=== PATIENT | male | born 1975 | race Caucasian/White ===

== ENCOUNTER 2018-03-06 11:13 | Emergency (ER) | payer OTHER ==
[2018-03-06 11:18] VITALS: BP 122/79; PULSE 88; TEMP 98.6; BMI 27.4
--- NOTE | 2018-03-06 11:43 | PDOC ---
History of Present Illness - General Chief Complaint: Injury Stated Complaint: FALL/ LT SHOULDER PAIN Time Seen by Provider: 03/06/18 11:22 - History of Present Illness Initial Comments: 42-year-old male presents for evaluation of left shoulder pain after fall on his shoulder yesterday. He points to the posterior lateral aspect of the left shoulder as the area of his discomfort. His pain is exacerbated with motion relieved with rest and free of radiation. No prior problems with the left shoulder. 03/06/18 11:40 Past History - Past Medical History Allergies/Adverse Reactions: Allergies Allergy/AdvReac Type Severity Reaction Status Date / Time No Known Allergies Allergy Verified 03/06/18 11:14 Home Medications: Ambulatory Orders Ibuprofen [Motrin -] 600 mg PO TID #30 tablet 03/06/18 Anemia: No Asthma: No Cancer: No Cardiac Disorders: No CVA: No COPD: No CHF: No DVT: No Dementia: No Diabetes: No GI Disorders: No Disorders: No HTN: No Hypercholesterolemia: No Liver Disease: No Seizures: No Thyroid Disease: No - Surgical History Abdominal Surgery: No Appendectomy: No Cardiac Surgery: No Cholecystectomy: No Lung Surgery: No Neurologic Surgery: No Orthopedic Surgery: No - Suicide/Smoking/Psychosocial Hx Smoking History: Never smoked Have you smoked in the past 12 months: No Information on smoking cessation initiated: No Hx Alcohol Use: No Drug/Substance Use Hx: No Substance Use Type: None Hx Substance Use Treatment: No Review of Systems - Review of Systems Musculoskeletal: Yes: Joint Pain All Other Systems: Reviewed and Negative *Physical Exam - Vital Signs Last Vital Signs Temp Pulse Resp BP Pulse Ox 98.6 F 88 18 122/79 100 03/06/18 11:16 03/06/18 11:16 03/06/18 11:16 03/06/18 11:16 03/06/18 11:16 - Physical Exam Comments: A by the way temperature if occasionally number on the way there is a superficial abrasion on the posterior aspect of the left shoulder. Remainder of the shoulder is normal skin color and temperature. There is no tenderness. There is pain with active motion. Passive forward flexion to 90 full internal and external rotation passively. He cannot tolerate impingement maneuvers were rotator cuff strength testing. He has no gross sensorimotor deficits. He is neurovascularly intact. 03/06/18 11:41 ED Treatment Course - RADIOLOGY Radiology Studies Ordered: Category Date Time Status SHOULDER-LEFT [RAD] Stat Radiology 03/06/18 11:40 Ordered Medical Decision Making - Medical Decision Making This most likely a left shoulder contusion versus a traumatic cuff rupture. Get an x-ray to rule out a fracture and have her follow-up with orthopedics. 03/06/18 11:43 03/06/18 11:54 X-rays of the left shoulder show mild to moderate degenerative changes at the before meals joint D Humira head is centered in the glenoid no acute fracture *DC/Admit/Observation/Transfer Diagnosis at time of Disposition: Contusion of left shoulder - Discharge Dispostion Disposition: HOME Condition at time of disposition: Stable Decision to Admit order: No - Referrals Referrals: Jeancarlos Valdivia MD [Staff Physician] - - Patient Instructions Printed Discharge Instructions: Contusion Additional Instructions: I've given you Motrin for your pain it's important to take this medicine with food. If it bothers her stomach discontinue the medication. It's also point to follow-up with orthopedic surgery for further evaluation and treatment options or your left shoulder pain. Return to the emergency room if symptoms worsen or go unresolved prior to follow-up. - Post Discharge Activity
== END 2018-03-06 12:00 | disposition home or self-care (01) ==
LOC: JERFT 11:13
DX: S40.012A Contusion of left shoulder, initial encounter (principal); W01.0XXA Fall on same level from slipping, tripping and stumbling without subsequent striking against object, initial encounter; Y93.89 Activity, other specified; Y92.89 Other specified places as the place of occurrence of the external cause; Y99.8 Other external cause status
CPT/HCPCS: 73030-TC-LT-FY; 99281-25

== ENCOUNTER 2018-09-09 00:02 | Emergency (ER) | payer OTHER ==
[2018-09-09 00:34] VITALS: TEMP 98.3; BMI 28.3
--- NOTE | 2018-09-09 00:36 | PDOC ---
Attending Attestation - [facility] HPI: 09/09/18 01:09 The patient is a 43 year old male with no significant PMH who presents to the emergency department with right ankle pain since 5AM this morning. Patient reports that he rolled his right ankle and fell onto his right elbow. Patient denies any right elbow pain. Patient has noticed significant swelling throughout the day prompting him to come to the ER for evaluation. Patient states he can ambulate but with pain. The patient denies chest pain, shortness of breath, headache and dizziness. Denies fever, chills, nausea, vomit, diarrhea and constipation. Denies dysuria, frequency, urgency and hematuria. Allergies: NKA Past surgical history: Social history: No reported
--- NOTE | 2018-09-09 01:39 | PDOC ---
History of Present Illness <Yovana Tran - Last Filed: 09/09/18 02:35> - General History Source: Patient Exam Limitations: No Limitations - History of Present Illness Initial Comments: 09/09/18 01:31 43 yo M with no pmhx presents to the emergency department with an ankle injury that occurred at approximately 5am when returning from work to home walking outside in the rain. Per the patient, he slipped and rolled his right ankle outwards and subsequently fell, denying head trauma. The patient states he had pain in the medial and lateral aspect of the ankle, but was able to ambulate with some difficulty. The patient states it continued to swell throughout the day with progressive pain. Denies the following: fever, chills, nausea, vomiting , headache, visual changes, chest pain, SOB, abdominal pain, dysuria, hematuria , diarrhea, hematochezia, knee pain/swelling, and hip pain bilaterally. Pmhx: None Shx: None Meds: None Allergies: NKDA Social: Denies tobacco, alcohol, and substance abuse. <Jose Anand - Last Filed: 09/09/18 03:58> - General Chief Complaint: Pain Stated Complaint: SWOLLEN R ANKLE Time Seen by Provider: 09/09/18 00:35 Past History <Yovana Tran - Last Filed: 09/09/18 02:35> - Past Medical History Anemia: No Asthma: No Cancer: No Cardiac Disorders: No CVA: No COPD: No CHF: No DVT: No Dementia: No Diabetes: No GI Disorders: No Disorders: No HTN: No Hypercholesterolemia: No Liver Disease: No Seizures: No Thyroid Disease: No - Surgical History Abdominal Surgery: No Appendectomy: No Cardiac Surgery: No Cholecystectomy: No Lung Surgery: No Neurologic Surgery: No Orthopedic Surgery: No - Immunization History Immunization Up to Date: Yes - Suicide/Smoking/Psychosocial Hx Smoking History: Never smoked Have you smoked in the past 12 months: No Information on smoking cessation initiated: No Hx Alcohol Use: No Drug/Substance Use Hx: No Substance Use Type: None Hx Substance Use Treatment: No <Jose Anand - Last Filed: 09/09/18 03:58> - Past Medical History Allergies/Adverse Reactions: Allergies Allergy/AdvReac Type Severity Reaction Status Date / Time No Known Allergies Allergy Verified 09/09/18 00:34 Home Medications: Ambulatory Orders Ibuprofen [Motrin -] 600 mg PO TID #30 tablet 03/06/18 Review of Systems - Review of Systems Able to Perform ROS?: Yes Is the patient limited Yemeni proficient: No Constitutional: No: Chills, Diaphoresis, Fever, Weakness HEENTM: No: Recent change in vision, Nose Pain, Throat Pain, Throat Swelling, Mouth Pain, Mouth Swelling Respiratory: No: Shortness of Breath, SOB with Exertion, Hemoptysis Cardiac (ROS): No: Chest Pain, Lightheadedness, Palpitations, Syncope, Chest Tightness ABD/GI: No: Constipated, Diarrhea, Nausea, Rectal Bleeding, Vomiting, Abdominal cramping, Tarry Stools : No: Burning, Dysuria, Flank Pain, Hematuria Musculoskeletal: Yes: Joint Pain (right ankle), Joint Swelling (right ankle). No: Back Pain Integumentary: Yes: Bruising (right ankle). No: Pallor, Rash Neurological: No: Headache, Numbness, Weakness, Ataxia Psychiatric: No: Stressors Endocrine: No: Unexplained Weight Gain Hematologic/Lymphatic: No: Anemia <Jose Anand - Last Filed: 09/09/18 03:58> *Physical Exam - Vital Signs Last Vital Signs Temp Pulse Resp BP Pulse Ox 98.3 F 78 18 112/73 98 09/09/18 00:33 09/09/18 00:33 09/09/18 00:33 09/09/18 00:33 09/09/18 00:33 <Yovana Tran - Last Filed: 09/09/18 02:35> - Vital Signs Last Vital Signs Temp Pulse Resp BP Pulse Ox 98.3 F 78 18 112/73 98 09/09/18 00:33 09/09/18 00:33 09/09/18 00:33 09/09/18 00:33 09/09/18 00:33 - Physical Exam General Appearance: Yes: Nourished, Appropriately Dressed HEENT: positive: EOMI, OPAL, Normal Voice, Symmetrical, Hearing Grossly Normal. negative: Scleral Icterus (R), Scleral Icterus (L), Muffled/Hoarse voice, Lesions, Wahl, Excessive drooling Neck: positive: Trachea midline. negative: Tender, Lymphadenopathy (R), Lymphadenopathy (L), Tender lateral, Tender midline Respiratory/Chest: positive: Lungs Clear, Normal Breath Sounds. negative: Chest Tender, Respiratory Distress, Accessory Muscle Use, Paradoxal Breathing, Crackles, Rales, Rhonchi, Stridor, Wheezing, Hyperresonant Cardiovascular: positive: Regular Rhythm, Regular Rate, S1, S2. negative: Systolic Murmur Gastrointestinal/Abdominal: positive: Normal Bowel Sounds, Flat, Soft. negative : Tender, Protuberent, Distended, Rebound Lymphatic: negative: Adenopathy Musculoskeletal: positive: Normal Inspection. negative: CVA Tenderness Extremity: positive: Normal Capillary Refill, Normal Range of Motion, Tender ( right ankle at the posterior and inferior portions of the medial malleolus. inferior portion of the lateral malleolus. ecchymosis on these aspects. swelling present on the ankle. no tenderness to the 5th metatarsal. ) Integumentary: positive: Normal Color, Dry, Warm Neurologic: positive: agency legal counsel II-XII NML intact, Fully Oriented, Alert, Normal Mood/ Affect, Normal Response, Motor Strength 5/5 <Jose Anand - Last Filed: 09/09/18 03:58> Moderate Sedation - Procedure Monitoring Vital Signs: Procedure Monitoring Vital Signs Temperature 98.3 F 09/09/18 00:33 Pulse Rate 78 09/09/18 00:33 Respiratory Rate 18 09/09/18 00:33 Blood Pressure 112/73 09/09/18 00:33 O2 Sat by Pulse Oximetry (%) 98 09/09/18 00:33 <Yovana Tran - Last Filed: 09/09/18 02:35> - Procedure Monitoring Vital Signs: Procedure Monitoring Vital Signs Temperature 98.3 F 09/09/18 00:33 Pulse Rate 78 09/09/18 00:33 Respiratory Rate 18 09/09/18 00:33 Blood Pressure 112/73 09/09/18 00:33 O2 Sat by Pulse Oximetry (%) 98 09/09/18 00:33 <Jose Anand - Last Filed: 09/09/18 03:58> Procedures - Splinting Splint Location: Right: Ankle Pre-Proc Neuro Vasc Exam: normal Hand-Made Type: orthoglass Splint Type: Yes: Sugar Tong, Posterior Post-Proc Neuro Vasc Exam: normal Jah Bandage: 3" Sling: No Complications: No Post splint xray: No Good repositioning: Yes <Jose Anand - Last Filed: 09/09/18 03:58> ED Treatment Course - RADIOLOGY Radiology Studies Ordered: Category Date Time Status ANKLE & FOOT-RIGHT* [RAD] Stat Radiology 09/09/18 00:57 Ordered <Jose Anand - Last Filed: 09/09/18 03:58> Medical Decision Making - Medical Decision Making 09/09/18 02:35 Patient Name: QUENTIN MAO THIS IS A PRELIMINARY REPORT FROM IMAGING CONSULTING ANALYST DATE OF SERVICE: 2018-09-09 01:10:15 IMAGES: 5 EXAM: X-RAY RIGHT ANKLE AND RIGHT FOOT Acute minimally displaced oblique fracture distal metadiaphysis right fibula. Moderate soft tissue swelling about the ankle. Medial tibiotalar joint space appears widened on frontal view, question post-traumatic subluxation versus artifact due to slightly oblique positioning. No additional acute fracture or dislocation right foot. <Yovana Tran - Last Filed: 09/09/18 02:35> - Medical Decision Making 43 yo M with no pmhx presents to the emergency department with an ankle injury that occurred at approximately 5am when returning from work to home walking outside in the rain Initial vitals: Initial Vital Signs Temp Pulse Resp BP Pulse Ox 98.3 F 78 18 112/73 98 09/09/18 00:33 09/09/18 00:33 09/09/18 00:33 09/09/18 00:33 09/09/18 00:33 Work up: xray of the right foot and ankle to rule out dislocations and fractures. 09/09/18 02:13 patient has a non displaced transverse fracture of the distal fibula with possible shifting of the tibia widening the space between the tibia and navicular. Patient has retained ROM on the right ankle and able to ambulate. Will put in a posterior and sugar tong splint. xray has been sent to imaging personnel associate for further reading. 09/09/18 02:38 xray report came back with results above. patient was able to ambulate around the bed. understands the need to follow up with orthopedics within 72 hours for follow up care and management. <Jose Anand - Last Filed: 09/09/18 03:58> *DC/Admit/Observation/Transfer <Yovana Tran - Last Filed: 09/09/18 02:35> - Discharge Dispostion Decision to Admit order: No <Jose Anand - Last Filed: 09/09/18 03:58> Diagnosis at time of Disposition: Fracture of tibia, distal Qualifiers: Encounter type: initial encounter Fracture type: closed Fracture morphology: unspecified fracture morphology Laterality: right Qualified Code(s): S82.301A - Unspecified fracture of lower end of right tibia, initial encounter for closed fracture - Discharge Dispostion Disposition: HOME - Referrals Referrals: Jeancarlos Valdivia MD [Staff Physician] - - Patient Instructions Additional Instructions: You were seen in the emergency department for the evaluation of your swollen ankle. xray showed that you have a fracture on the distal end of your fibula. You have been given a copy of your xray report. Please keep the splint dry. Keep it on until you are seen by Dr. Valdivia who you have been referred to. Please follow up with him within 72 hours after discharge. Please follow up with your primary medical doctor within 5-7 days after discharge. Please return to the emergency department if you have worsening symptoms or new concerning symptoms such as loss of sensation, increased swelling, and your feet turning blue. Please take off your splint if these symptoms occur. Thank you. - Post Discharge Activity Forms/Work/School Notes: Back to Work
--- NOTE | 2018-09-09 02:33 | PDOC ---
*Physical Exam - Vital Signs Last Vital Signs Temp Pulse Resp BP Pulse Ox 98.3 F 78 18 112/73 98 09/09/18 00:33 09/09/18 00:33 09/09/18 00:33 09/09/18 00:33 09/09/18 00:33 Medical Decision Making - Medical Decision Making Pt was signed out to me by resident Dr. Anand, who explained the presentation, ED course, any pending results, and needed interventions. Pending results include x-ray read of the lower leg and foot to r/o any fracture or dislocation in the midfoot. Pt is currently stable and is lying comfortably. Dr. Anand placed pt in a posterior lower leg splint before leaving the department. 09/09/18 02:31
[2018-09-09 02:47] VITALS: BP 124/76; PULSE 84
== END 2018-09-09 02:47 | disposition home or self-care (01) ==
LOC: JER 00:02
PROC: 2W3QX1Z Immobilization of Right Lower Leg using Splint (ICD-10-PCS; principal; 2018-09-09)
DX: S82.301A Unspecified fracture of lower end of right tibia, initial encounter for closed fracture (principal); W01.0XXA Fall on same level from slipping, tripping and stumbling without subsequent striking against object, initial encounter; Y93.89 Activity, other specified; Y92.410 Unspecified street and highway as the place of occurrence of the external cause
CPT/HCPCS: 29515; 73610-TC-RT-FY; 73630-TC-RT-FY; 99282-25

== ENCOUNTER 2018-09-10 16:48 | Emergency (ER) | payer OTHER ==
[2018-09-10 17:23] VITALS: BP 127/79; PULSE 74; TEMP 98.8; BMI 28.3
--- NOTE | 2018-09-10 17:25 | PDOC ---
Rapid Medical Evaluation Chief Complaint: Revisit,Wound Recheck Time Seen by Provider: 09/10/18 17:18 Medical Evaluation: Allergies Allergy/AdvReac Type Severity Reaction Status Date / Time No Known Allergies Allergy Verified 09/10/18 17:19 09/10/18 17:21 I have performed a brief in-person evaluation of this patient. The patient presents with a chief complaint of:worsen swelling and pain to right ankle Pertinent physical exam findings: swelling to left ankle , states is bruised and weeping. I have ordered the following: nothing The patient will proceed to the ED for further evaluation. Discharge Disposition - Referrals Referrals: Yariel Day [Primary Care Provider] - - Patient Instructions - Post Discharge Activity
--- NOTE | 2018-09-10 18:16 | PDOC ---
History of Present Illness - General Chief Complaint: Revisit,Wound Recheck Stated Complaint: REVISIT ANKLE INJURY Time Seen by Provider: 09/10/18 17:18 - History of Present Illness Initial Comments: 09/10/18 18:15 43-year-old male without comorbidities presents for reevaluation of right ankle pain. He was diagnosed with an ankle fracture splinted and told to follow-up with orthopedics. He did however the orthopedic physician told him he did not take his insurance. He presents with increasing swelling now a blister on the medial aspect of his right ankle. And increasing pain. Past History - Past Medical History Allergies/Adverse Reactions: Allergies Allergy/AdvReac Type Severity Reaction Status Date / Time No Known Allergies Allergy Verified 09/10/18 17:19 Home Medications: Ambulatory Orders Ibuprofen [Motrin -] 600 mg PO TID #30 tablet 03/06/18 Anemia: No Asthma: No Cancer: No Cardiac Disorders: No CVA: No COPD: No CHF: No DVT: No Dementia: No Diabetes: No GI Disorders: No Disorders: No HTN: No Hypercholesterolemia: No Liver Disease: No Seizures: No Thyroid Disease: No - Surgical History Abdominal Surgery: No Appendectomy: No Cardiac Surgery: No Cholecystectomy: No Lung Surgery: No Neurologic Surgery: No Orthopedic Surgery: No - Immunization History Immunization Up to Date: Yes - Suicide/Smoking/Psychosocial Hx Smoking History: Never smoked Have you smoked in the past 12 months: No Hx Alcohol Use: No Drug/Substance Use Hx: No Substance Use Type: None Hx Substance Use Treatment: No Review of Systems - Review of Systems Musculoskeletal: Yes: Joint Pain *Physical Exam - Vital Signs Last Vital Signs Temp Pulse Resp BP Pulse Ox 98.8 F 74 18 127/79 98 09/10/18 17:20 09/10/18 17:20 09/10/18 17:20 09/10/18 17:20 09/10/18 17:20 - Physical Exam Comments: 09/10/18 18:15 There is a moderate amount of swelling about the right ankle both medially and laterally with associated fresh purple ecchymosis there is a small weeping blister on the medial aspect of the right ankle. Range of motion is limited no gross sensorimotor deficits stability not evaluated is neurovascularly intact. Moderate Sedation - Procedure Monitoring Vital Signs: Procedure Monitoring Vital Signs Temperature 98.8 F 12/03/18 17:20 Pulse Rate 74 09/10/18 17:20 Respiratory Rate 18 09/10/18 17:20 Blood Pressure 127/79 09/10/18 17:20 O2 Sat by Pulse Oximetry (%) 98 09/10/18 17:20 ED Treatment Course - RADIOLOGY Radiology Studies Ordered: Category Date Time Status LOWER EXTREMITY CT W/O CONTR [CT] Stat CT Scan 09/10/18 18:03 Ordered Medical Decision Making - Medical Decision Making 09/10/18 19:31 New posterior and sugar tong splint was applied this was tolerated well the blister on the medial aspect of the ankle was covered with a dry sterile dressing neurovascular intact post application 09/10/18 19:32 CAT scan reviewed and showed a distal fibula fracture with minimal displacement widening of the mortise *DC/Admit/Observation/Transfer Diagnosis at time of Disposition: Fracture of distal fibula - Discharge Dispostion Disposition: HOME Condition at time of disposition: Stable Decision to Admit order: No - Referrals Referrals: Yariel Day [Primary Care Provider] - Jeancarlos Valdivia MD [Staff Physician] - - Patient Instructions Additional Instructions: Please keep the splint clean and dry remain nonweightbearing with use of crutches Tylenol and Motrin as directed for pain and follow-up with orthopedics as scheduled and serum should symptoms worsen or go unresolved. Elevate your ankle above the level of your heart continuously while your home - Post Discharge Activity
[2018-09-10] MEDS ORDERED: ACETAMINOPHEN 500 MG TABLET (FP) PO ONE (18:56)
[2018-09-10] MEDS ORDERED: ACETAMINOPHEN 500 MG TABLET (FP) ONE (18:58)
== END 2018-09-10 19:36 | disposition home or self-care (01) ==
LOC: JERFT 16:48
PROC: 2W3QX1Z Immobilization of Right Lower Leg using Splint (ICD-10-PCS; principal; 2018-09-10)
DX: S82.831G Other fracture of upper and lower end of right fibula, subsequent encounter for closed fracture with delayed healing (principal); X58.XXXD Exposure to other specified factors, subsequent encounter
CPT/HCPCS: 29515; 73700-TC-RT; 99282-25

== ENCOUNTER 2019-12-29 05:07 | Inpatient (IN) | payer OTHER ==
--- NOTE | 2019-12-29 05:46 | PDOC ---
History of Present Illness - General Chief Complaint: Cold Symptoms Stated Complaint: COLD SYMPTOMS Time Seen by Provider: 12/29/19 05:45 - History of Present Illness Initial Comments: 12/29/19 06:30 44 y/o M no significant medical hx, presents to the ED with 1 week of chills, and shortness of breath. Pt has equally had fevers on and off while at home. He reports seeing his PCP 3 days ago who tested for influenza which was negative. He reports over the lasat 2 days, he has had increased difficulty breathing at rest, and fevers not adequately controlled with ibuprofen at home. He endorses watery diarrhea, myalgias, sick contacts ( with flu like symptoms currently doing well). He denies nausea, vomiting, urinary symptoms. Past History - Past Medical History Allergies/Adverse Reactions: Allergies Allergy/AdvReac Type Severity Reaction Status Date / Time No Known Allergies Allergy Verified 12/29/19 05:29 Home Medications: Ambulatory Orders Ibuprofen [Motrin -] 600 mg PO TID #30 tablet 03/06/18 Anemia: No Asthma: No Cancer: No Cardiac Disorders: No CVA: No COPD: No CHF: No DVT: No Dementia: No Diabetes: No GI Disorders: No Disorders: No HTN: No Hypercholesterolemia: No Liver Disease: No Seizures: No Thyroid Disease: No - Surgical History Abdominal Surgery: No Appendectomy: No Cardiac Surgery: No Cholecystectomy: No Lung Surgery: No Neurologic Surgery: No Orthopedic Surgery: No - Immunization History Immunization Up to Date: Yes - Psycho Social/Smoking Cessation Hx Smoking History: Unknown if ever smoked Have you smoked in the past 12 months: No Information on smoking cessation initiated: No Hx Alcohol Use: No Drug/Substance Use Hx: No Substance Use Type: None Hx Substance Use Treatment: No Review of Systems - Review of Systems Comments:: 12/29/19 06:35 GENERAL/CONSTITUTIONAL: fevers chills HEAD, EYES, EARS, NOSE AND THROAT: No change in vision. No ear pain or discharge. No sore throat. CARDIOVASCULAR: shortness of breath. RESPIRATORY: shortness of breath GASTROINTESTINAL: No nausea, vomiting, or constipation. +diarrhea GENITOURINARY: No dysuria, frequency, or change in urination. MUSCULOSKELETAL: No joint or muscle swelling or pain. No neck or back pain. SKIN: No rash NEUROLOGIC: No headache, vertigo, loss of consciousness, or change in strength/sensation. ENDOCRINE: No increased thirst. No abnormal weight change HEMATOLOGIC/LYMPHATIC: No anemia, easy bleeding, or history of blood clots. ALLERGIC/IMMUNOLOGIC: No hives or skin allergy *Physical Exam - Vital Signs Last Vital Signs Temp Pulse Resp BP Pulse Ox 101.2 F H 95 H 20 138/69 90 L 12/29/19 05:29 12/29/19 05:29 12/29/19 05:29 12/29/19 05:29 12/29/19 05:29 - Physical Exam 12/29/19 06:28 GENERAL: Awake, alert, and fully oriented HEAD: No signs of trauma, normocephalic, atraumatic EYES: PERRLA, EOMI, sclera anicteric, conjunctiva clear ENT: Auricles normal inspection, hearing grossly normal, nares patent, NECK: Normal ROM, supple, no lymphadenopathy, JVD, or masses LUNGS: increased respiratory effort, pt only speaking in short sentences. on nasal cannula. decreased breath sounds in left lower lung powers. HEART: Regular rate and rhythm, normal S1 and S2, no murmurs, rubs or gallops, ABDOMEN: Soft, nontender, normoactive bowel sounds. No guarding, no rebound. No masses EXTREMITIES : Normal inspection, Normal range of motion, no edema. No clubbing or cyanosis NEUROLOGICAL: Cranial nerves II through XII grossly intact. Normal speech, normal gait, no focal sensorimotor deficits SKIN: Warm, Dry, normal turgor, no rashes or lesions noted ED Treatment Course - LABORATORY CBC & Chemistry Diagram: 01/01/20 06:40 01/01/20 06:00 Medical Decision Making - Medical Decision Making 12/29/19 06:33 44 y/o M no significant medical hx, presents to the ED with 1 week of chills, and shortness of breath. increased respiratory effort, tachypneic with fever ddx: pneumonia (viral vs bacterial ), coronavirus, other respiratory virus 12/29/19 06:37 workup cbc, cmp, ekg,troponin resp viral panel, covid, chest x-ray meds: Iv fluids, tylenol signed out to Dr. Mishra 12/29/19 07:28 Discharge - Discharge Information Problems reviewed: Yes Clinical Impression/Diagnosis: Viral illness Respiratory failure Qualifiers: Chronicity: acute Respiratory failure complication: hypoxia Qualified Code(s): J96.01 - Acute respiratory failure with hypoxia Condition: Stable - Follow up/Referral - Patient Discharge Instructions - Post Discharge Activity
[2019-12-29] MEDS ORDERED: ACETAMINOPHEN 1000 MG/100 ML VIAL (NON FORMULARY) IVPB ONE (06:04)
[2019-12-29] MEDS ORDERED: SODIUM CHLORIDE 0.9% 500 ML INFUS.BAG IV ONE (06:04)
[2019-12-29] MEDS ORDERED: ACETAMINOPHEN INJECTION 100 ML IVPB ONE (06:24)
--- NOTE | 2019-12-29 06:52 | PDOC ---
Attending Attestation - Resident Resident Name: YanniMonicaMichaelNickevon - ED Attending Attestation I have performed the following: I have examined & evaluated the patient, The case was reviewed & discussed with the resident, I agree w/resident's findings & plan, Exceptions are as noted - HPI HPI: 12/29/19 06:44 44yoM no PMHx, no cig presnets w/ 10 days of progressive fevers, cough, sob/garcia. Much worse over past 1-2 days. Now visibly dyspneic at rest in stretcher, hypoxic on RA to 80's, speaking in 2- 3 words. - Physicial Exam PE: 12/29/19 06:52 dyspneic, mild respiratory distress at rest. RRR good air movement, diffuse fine crackles to apices b/l, no wheezing/r/r. soft NTND no edema A&O x 3 - Medical Decision Making 12/29/19 06:52 44yoM w/ moderate to severe presumed COVID-19 disease. - labs - testing - cxr - cardaic monitor - maintain O2 -- pt on 5L on ED presnetation - admit, low threshold for ICU consultation. Discharge - Discharge Information Problems reviewed: Yes Clinical Impression/Diagnosis: Viral illness - Follow up/Referral Referrals: Lachelle Torres MD [Primary Care Provider] - - Patient Discharge Instructions - Post Discharge Activity
[2019-12-29 07:25] LABS: ALBUMIN 2.7 g/dl (3.4-5.0); ALK PHOS 79 U/L (45-117); ANION GAP 10 MMOL/L (8-16); BILIRUBIN,TOTAL 0.6 mg/dL (0.2-1); BLOOD UREA NITROGEN 10.2 mg/dL (7-18); CALCIUM 7.5 mg/dL (8.5-10.1); CHLORIDE 103 mmol/L (98-107); CO2 24 mmol/L (21-32); CREATININE 0.7 mg/dL (0.55-1.3); GLUCOSE,RANDOM 146 mg/dL (74-106); POTASSIUM 3.7 mmol/L (3.5-5.1); SGOT/AST 182 U/L (15-37); SGPT/ALT 278 U/L (13-61); SODIUM 136 mmol/L (136-145); TOT PROT 6.3 g/dl (6.4-8.2)
--- NOTE | 2019-12-29 07:34 | PDOC ---
*Physical Exam - Vital Signs Last Vital Signs Temp Pulse Resp BP Pulse Ox 101.2 F H 95 H 20 138/69 90 L 12/29/19 05:29 12/29/19 05:29 12/29/19 05:29 12/29/19 05:29 12/29/19 05:29 ED Treatment Course - LABORATORY CBC & Chemistry Diagram: 12/29/19 08:47 12/29/19 06:04 - ADDITIONAL ORDERS Additional order review: Laboratory Results 12/29/19 06:04 Sodium 136 Potassium 3.7 Chloride 103 Carbon Dioxide 24 Anion Gap 10 BUN 10.2 Creatinine 0.7 Est GFR (CKD-EPI)AfAm 133.96 Est GFR (CKD-EPI)NonAf 115.58 Random Glucose 146 H Calcium 7.5 L Total Bilirubin 0.6 AST 182 H ALT 278 H Alkaline Phosphatase 79 Troponin I < 0.02 Total Protein 6.3 L Albumin 2.7 L - Medications Given in the ED: ED Medications Discontinued Medications Generic Name Dose Route Start Last Admin Trade Name Freq PRN Reason Stop Dose Admin Acetaminophen 1,000 mg 12/29/19 06:04 12/29/19 06:39 Ofirmev Injection - IVPB 12/29/19 06:05 1,000 mg ONCE ONE Administration Sodium Chloride 1,000 ml 12/29/19 06:04 12/29/19 06:39 Normal Saline - IV 12/29/19 06:05 1,000 ml ONCE ONE Administration Medical Decision Making - Medical Decision Making 12/29/19 07:28 Signed out to me by Dr. Mustafa. 44M presenting with fever to 101.2F, 2d worsening SOB, hypoxic to 90%RA improved to 95% on 5LNC. Needs labs, chest CT, ECG. Will ultimately need need admission for hypoxic respitatory failure, high suspicion for intubation if hypoxia worsens. [X] labs [X] CXR [X] ECG Labs notable for: - BMP WNL - AST 182 - ALT 278 - Alb 2.7 12/29/19 08:49 CBC clotted, repeat done. ECG shows NSR with RBBB, HR 61, QRS 146, QTc 465, no concerning TWI or ischemic changes, no prior ECG for comparison. 12/29/19 08:53 Repeat temp 98.4F after Ofirmev. Patient appears to be resting in bed but has SOB and tachypnea, still saturating at 100% on 5L NC. 12/29/19 09:35 CXR shows bilateral infiltrates, consistent with diffuse PNA vs. covid-19. No CT chest needed. Repeat CBC WNL. Patient requires admission for hypoxic respiratory failure and likely covid-19. 12/29/19 12:[address] Satish Alexander for admission to his service under med-surg, covid and ARF. Discharge - Discharge Information Problems reviewed: Yes Clinical Impression/Diagnosis: Viral illness Respiratory failure Qualifiers: Chronicity: acute Respiratory failure complication: hypoxia Qualified Code(s): J96.01 - Acute respiratory failure with hypoxia Condition: Stable - Admission Yes - Follow up/Referral - Patient Discharge Instructions - Post Discharge Activity
[2019-12-29 09:18] LABS: BASO % 0.2 % (0-2.0); HEMATOCRIT 29.7 % (35.4-49); HEMOGLOBIN 9.9 GM/dL (11.7-16.9); LYMPH % 7.6 % (8-40); MCH 22.8 pg (25.7-33.7); MCHC 33.3 g/dl (32.0-35.9); MEAN CELL VOLUME 68.4 fl (80-96); MEAN PLT VOLUME 7.8 fl (7.5-11.1); MONO % 5.1 % (3.8-10.2); NEUT % 87.1 % (42.8-82.8); PLATELET COUNT 301 K/MM3 (134-434); RBC 4.35 M/mm3 (4.00-5.60); RDW 16.3 % (11.9-15.9); WHITE BLOOD COUNT 7.2 K/mm3 (4.0-10.0)
[2019-12-29] MEDS ORDERED: CEFTRIAXONE 1,000 MG in DEXTROSE 5%-WATER - 50 ML IVPB ONE (09:38)
[2019-12-29] MEDS ORDERED: AZITHROMYCIN IVPB 500 MG in DEXTROSE 5%-WATER - 250 ML IVPB ONE (09:39)
--- NOTE | 2019-12-29 11:53 | HP ---
Admitting History and Physical - Admission Chief Complaint: shortness of breath and fever History of Present Illness: 44 y/o M no significant medical hx, presents to the ED with 10 days of chills, and shortness of breath. Pt has had fevers on and off. He reports seeing his PCP 3 days ago who tested for influenza which was negative. He reports over the last 2 days he has had increased difficulty breathing at rest and fevers not responding to ibuprofen. He endorses watery diarrhea, myalgias, sick contacts as his with flu like symptoms are currently doing well. He denies nausea, vomiting, urinary symptoms. In ER LFTS elevated fever 101.2 hypocix to 90% on room air now 100% on 5 liters nasal cannula, tachypenic and infiltrates on CXR History Source: Patient, Medical Record Limitations to Obtaining History: No Limitations - Past Medical History Additional Past Medical History: Denies - Smoking History Smoking history: Unknown if ever smoked Have you smoked in the past 12 months: No - Alcohol/Substance Use Hx Alcohol Use: No Home Medications - Allergies Allergies/Adverse Reactions: Allergies Allergy/AdvReac Type Severity Reaction Status Date / Time No Known Allergies Allergy Verified 12/29/19 05:29 - Home Medications Home Medications: Ambulatory Orders Ibuprofen [Motrin -] 600 mg PO TID #30 tablet 03/06/18 Review of Systems - Review of Systems Constitutional: reports: Chills, Diaphoresis, Fever Eyes: reports: No Symptoms HENT: reports: No Symptoms Neck: reports: No Symptoms Cardiovascular: reports: Shortness of Breath Respiratory: reports: Cough, SOB (at rest), SOB on Exertion Genitourinary: reports: No Symptoms Musculoskeletal: reports: Muscle Pain Integumentary: reports: No Symptoms Neurological: reports: No Symptoms Endocrine: reports: No Symptoms Physical Examination Vital Signs: Vital Signs Temperature 98.4 F 12/29/19 08:58 Pulse Rate 63 12/29/19 08:58 Respiratory Rate 28 H 12/29/19 08:58 Blood Pressure 124/64 12/29/19 08:58 O2 Sat by Pulse Oximetry (%) 100 12/29/19 08:58 Constitutional: Yes: Mild Distress Eyes: Yes: EOM Intact Cardiovascular: Yes: Tachycardia Respiratory: Yes: Tachypnea, Other (bilateral crackles) Gastrointestinal: Yes: WNL, Soft Edema: No Neurological: Yes: Alert, Oriented Labs: CBC, BMP 12/29/19 08:47 12/29/19 06:04 Imaging - Results Chest X-ray: Report Reviewed, Image Reviewed Assessment/Plan 44M with high suspicion for COVID-19 here for acute hypoxic resp failure. acute hypoxic resp failure: Admit to med surg ID consult azithromycin check urine antigens IVF nasal cannula for o2 support no bipap or high flow transaminitis: ? secondary to shock liver from volume depletion IVF repeat LFTs in AM Diarrhea likely related to viral syndrome monitor hydrate DVT PPx Lovenox Visit type - Emergency Visit Emergency Visit: Yes Care time: The patient presented to the Emergency Department on the above date and was hospitalized for further evaluation of their emergent condition. - New Patient This patient is new to me today: Yes Date on this admission: 12/29/19 - Critical Care Critical Care patient: No
[2019-12-29] MEDS ORDERED: CEFTRIAXONE 1 GM/50 ML BAG ONE ×2 (12:34→13:35)
[2019-12-29] MEDS ORDERED: AZITHROMYCIN IVPB 500 MG/250 ML BAG IVPB ONE ×2 (12:35→13:35)
--- NOTE | 2019-12-29 14:27 | PN ---
Progress Note (short form) - Note Progress Note: ID consult fever, dry cough pneumonia hypoxia CAP versus COVID 19 pneumonia labs pending blood cultures, hiv, cpk ordered rocephin/zithromax plaquenil trend qtc
[2019-12-29] MEDS: SODIUM CHLORIDE 1,000 ML IV SCH (15:26)
[2019-12-29] MEDS ORDERED: HYDROXYCHLOROQUINE SO4 200 MG TABLET (FP) ONE (16:45)
[2019-12-29] MEDS: HYDROXYCHLOROQUINE SO4 200 MG TABLET (FP) PO SCH (17:01)
--- NOTE | 2019-12-29 21:38 | CONS ---
DATE OF CONSULTATION: DATE OF DICTATION: 12/29/2019 This is a 44-year-old man who presents to the ER with 10 days of chills and cough. He has had fevers off and on. He apparently saw his primary doctor 3 days ago and was tested for influenza, which was negative. He has had increasing difficulty breathing over the last 48-72 hours. He has been taking ibuprofen at home. He has had some intermittent diarrhea as well. He reports no sick contacts. He says his is well. He denies any nausea, vomiting, or urinary symptoms. In the ER, he was noted to have a fever of 101.2. He was hypoxic on admission with an O2 saturation of 90% on room air. PAST MEDICAL HISTORY: Unremarkable. PAST SURGICAL HISTORY: Unremarkable. SOCIAL HISTORY: He is . He lives with his . He denies any HIV risk factors. He is not a smoker. He is originally from [place]. ALLERGIES: No known drug allergies. REVIEW OF SYSTEMS: Notable for the chills, the cough, and the fever. PHYSICAL EXAMINATION: Vital Signs: Current temperature is 98.4, temperature max is 101.2. His pulse is 63, blood pressure 124/64, respiratory rate is 28. He is saturating 100% on 2 L. HEENT: He is normocephalic. His eyes are anicteric. He has no thrush. Lungs: Have bibasilar crackles. Heart: Regular rate and rhythm. Abdomen: Soft, nontender. Extremities: Without edema. LABORATORY: White count is 7.2, hemoglobin 9.9, platelets are 301. BUN is 10, creatinine 0.7. His AST is elevated at 182 and ALT is elevated at 278. Troponin is normal. His Covid-19 serology is pending. He did not have an influenza screen, which we will obtain. His chest x-ray is notable for increased markings, early right infiltrate, probable left lower lobe infiltrate. IN SUMMARY: This is a 44-year-old man with fever, dry cough, pneumonia on x-ray with hypoxia, CAP versus Covid-19 disease. He does need an influenza antigen checked. His labs are pending. I would obtain blood cultures and HIV test and CPK, which were ordered. I would treat him with Rocephin and Zithromax for CAP and add Plaquenil given the severity of his hypoxia. We need to trend his QTc. EKG has been ordered for the morning. Further recommendations to follow. Yaima [id number]
[2019-12-30] MEDS ORDERED: HYDROXYCHLOROQUINE SO4 200 MG TABLET (FP) ONE (03:45)
[2019-12-30] MEDS: HYDROXYCHLOROQUINE SO4 200 MG TABLET (FP) PO SCH (03:51)
[2019-12-30 07:42] LABS: BASO % 0.2 % (0-2.0); EOS % 0.7 % (0-4.5); HEMATOCRIT 30.6 % (35.4-49); HEMOGLOBIN 10.2 GM/dL (11.7-16.9); LYMPH % 10.9 % (8-40); MCH 23.1 pg (25.7-33.7); MCHC 33.4 g/dl (32.0-35.9); MEAN CELL VOLUME 69.2 fl (80-96); MEAN PLT VOLUME 7.9 fl (7.5-11.1); MONO % 6.2 % (3.8-10.2); PLATELET COUNT 340 K/MM3 (134-434); RBC 4.42 M/mm3 (4.00-5.60); RDW 16.2 % (11.9-15.9); WHITE BLOOD COUNT 5.9 K/mm3 (4.0-10.0)
[2019-12-30 07:49] LABS: ALBUMIN 2.4 g/dl (3.4-5.0); BILIRUBIN,TOTAL 0.6 mg/dL (0.2-1); BLOOD UREA NITROGEN 12.4 mg/dL (7-18); CALCIUM 7.7 mg/dL (8.5-10.1); CREATININE 0.6 mg/dL (0.55-1.3); MAGNESIUM 2.4 mg/dL (1.8-2.4); PHOSPHOROUS 3.2 mg/dL (2.5-4.9); TOT PROT 5.8 g/dl (6.4-8.2)
--- NOTE | 2019-12-30 09:37 | EKG ---
Test Reason : Blood Pressure : / mmHG Vent. Rate : 061 BPM Atrial Rate : 061 BPM P-R Int : 178 ms QRS Dur : 146 ms QT Int : 462 ms P-R-T Axes : 043 073 023 degrees QTc Int : 465 ms NORMAL SINUS RHYTHM RIGHT BUNDLE BRANCH BLOCK ABNORMAL ECG NO PREVIOUS ECGS AVAILABLE Confirmed by Tierney Delaney ([id number]) on 12/30/2019 9:36:49 AM Referred By: Confirmed By:Tierney Delaney
[2019-12-30] MEDS ORDERED: AZITHROMYCIN 500 MG TABLET PO SCH (10:00)
[2019-12-30] MEDS ORDERED: AZITHROMYCIN IVPB 500 MG/250 ML BAG IVPB SCH (10:00)
[2019-12-30] MEDS ORDERED: ENOXAPARIN NA (PORCINE) 40 MG/0.4 ML DISP.SYRIN SQ ONE (10:12)
[2019-12-30] MEDS ORDERED: AZITHROMYCIN IVPB 500 MG/250 ML BAG IVPB ONE (10:12)
[2019-12-30 10:43] LABS: PLATELET ESTIMATE NORMAL
[2019-12-30] MEDS: CEFTRIAXONE 1 GM in DEXTROSE 5%-WATER - 50 ML IVPB SCH (10:58)
[2019-12-30] MEDS: AZITHROMYCIN IVPB 250 MG in DEXTROSE 5%-WATER - 250 ML IVPB SCH (10:58)
[2019-12-30] MEDS: ENOXAPARIN NA (PORCINE) 40 MG/0.4 ML DISP.SYRIN SQ SCH (10:58)
[2019-12-30] MEDS: SODIUM CHLORIDE 1,000 ML IV SCH (13:27)
--- NOTE | 2019-12-30 15:49 | PN ---
Physical Exam: SUBJECTIVE: Patient seen and examined, came to the ED because he was short of breath at home. not home oxygen dependent. still on 2 liters nasal cannula. on airborne precautions to rule out covid. OBJECTIVE: Patient is a 44 year old male who presents to the ED with c/o of chills, shortness of breath and fevers at home. He was tested as an outpatient for flu which was negative. He also reported watery diarrhea. He was also noted to have elevated LFTs on admission, and fever 101.2F. Patient being ruled out for covid 19 but denies any body aches, headaches, chills or recent travel. On Ceftriaxone and Azithromycin for possible community acquired pneumonia. imaging: chest xray 12/29/2019: increased central lung markings along what may be an early infiltrate/atelectasis. atelectasis or inf at the left base cannot be excluded. Period Temp Pulse Resp BP Sys/Wong Pulse Ox Last 24 Hr 98.2 F-99.1 F 64-72 20-28 91-127/46-72 85-100 GENERAL: The patient is awake, alert, and fully oriented, in no acute distress. speaking in clear sentences. HEAD: Normal with no signs of trauma. EYES: PERRL, extraocular movements intact, sclera anicteric, conjunctiva clear. No ptosis. ENT: Ears normal, nares patent, oropharynx clear without exudates, moist mucous membranes. NECK: Trachea midline, full range of motion, supple. LUNGS: Breath sounds diminished bilaterally, no wheezing, on 2 liters of nasal cannula with stable oxygen, mild tachypnea HEART: Regular rate and rhythm ABDOMEN: Soft, nontender, nondistended, normoactive bowel sounds EXTREMITIES: no edema. NEUROLOGICAL: Normal speech, gait not observed. Laboratory Results - last 24 hr 12/29/19 12/29/19 12/30/19 18:15 22:55 06:42 WBC 5.9 RBC 4.42 Hgb 10.2 L Hct 30.6 L MCV 69.2 L MCH 23.1 L MCHC 33.4 RDW 16.2 H Plt Count 340 MPV 7.9 Absolute Neuts (auto) 4.8 Neutrophils % 82.0 Lymphocytes % 10.9 D Monocytes % 6.2 Eosinophils % 0.7 D Basophils % 0.2 Nucleated RBC % 0 Platelet Estimate Normal ESR Sodium Potassium Chloride Carbon Dioxide Anion Gap BUN Creatinine Est GFR (CKD-EPI)AfAm Est GFR (CKD-EPI)NonAf Random Glucose Calcium Phosphorus Magnesium Ferritin Total Bilirubin AST ALT Alkaline Phosphatase LD Total Creatine Kinase C-Reactive Protein Total Protein Albumin HIV Ag/Ab Combo Qual Negative Influenza A (Rapid) Negative Influenza B (Rapid) Negative 12/30/19 12/30/19 12/30/19 06:42 06:42 06:42 WBC RBC Hgb Hct MCV MCH MCHC RDW Plt Count MPV Absolute Neuts (auto) Neutrophils % Lymphocytes % Monocytes % Eosinophils % Basophils % Nucleated RBC % Platelet Estimate ESR Sodium 139 Potassium 4.0 Chloride 108 H Carbon Dioxide 23 Anion Gap 8 BUN 12.4 Creatinine 0.6 Est GFR (CKD-EPI)AfAm 142.72 Est GFR (CKD-EPI)NonAf 123.14 Random Glucose 106 Calcium 7.7 L Phosphorus 3.2 Magnesium 2.4 Ferritin 167.7 Total Bilirubin 0.6 AST 162 H ALT 294 H Alkaline Phosphatase 91 LD Total 446 H Creatine Kinase 112 C-Reactive Protein 8.1 H Total Protein 5.8 L Albumin 2.4 L HIV Ag/Ab Combo Qual Influenza A (Rapid) Influenza B (Rapid) 12/30/19 06:42 WBC RBC Hgb Hct MCV MCH MCHC RDW Plt Count MPV Absolute Neuts (auto) Neutrophils % Lymphocytes % Monocytes % Eosinophils % Basophils % Nucleated RBC % Platelet Estimate ESR 72 H Sodium Potassium Chloride Carbon Dioxide Anion Gap BUN Creatinine Est GFR (CKD-EPI)AfAm Est GFR (CKD-EPI)NonAf Random Glucose Calcium Phosphorus Magnesium Ferritin Total Bilirubin AST ALT Alkaline Phosphatase LD Total Creatine Kinase C-Reactive Protein Total Protein Albumin HIV Ag/Ab Combo Qual Influenza A (Rapid) Influenza B (Rapid) Active Medications Generic Name Dose Route Start Last Admin Trade Name Freq PRN Reason Stop Dose Admin Enoxaparin Sodium 40 mg 12/30/19 10:00 12/30/19 10:58 Lovenox - SQ 40 mg DAILY LYNDON Administration Sodium Chloride 1,000 mls @ 100 mls/hr 12/29/19 11:45 12/30/19 13:27 Normal Saline - IV 100 mls/hr ASDIR LYNDON Administration Ceftriaxone Sodium 1 gm/ 50 mls @ 200 mls/hr 12/30/19 10:00 12/30/19 10:58 Dextrose IVPB 200 mls/hr DAILY LYNDON Administration Protocol Azithromycin 250 mg/ Dextrose 250 mls @ 250 mls/hr 12/30/19 10:00 12/30/19 10:58 IVPB 250 mls/hr DAILY LYNDON Administration ASSESSMENT/PLAN: Problem List - Problems (1) Respiratory failure Assessment/Plan: on 2 liters of nasal cannula add bronchodilators Code(s): J96.90 - RESPIRATORY FAILURE, UNSP, UNSP W HYPOXIA OR HYPERCAPNIA Qualifiers: Chronicity: acute Respiratory failure complication: hypoxia Qualified Code(s): J96.01 - Acute respiratory failure with hypoxia (2) Suspected 2019 novel coronavirus infection Assessment/Plan: on airborne precaution, on oxygen support for respiratory failure monitor airway, oxygen sats are stable pulmonary and ID following, recommendations appreciated Code(s): R68.89 - OTHER GENERAL SYMPTOMS AND SIGNS (3) Pneumonia Assessment/Plan: possible CAP vs. complications from covid 19 for repeat chest xray in a.m. monitor labs, vitals, oxygen saturations Code(s): J18.9 - PNEUMONIA, UNSPECIFIED ORGANISM (4) Diarrhea Assessment/Plan: continue to hydrate with NS. currently not having diarrhea. Code(s): R19.7 - DIARRHEA, UNSPECIFIED (5) DVT prophylaxis Assessment/Plan: lovenox 40 Code(s): Z29.9 - ENCOUNTER FOR PROPHYLACTIC MEASURES, UNSPECIFIED Visit type - Emergency Visit Emergency Visit: Yes ED Registration Date: 12/29/19 Care time: The patient presented to the Emergency Department on the above date and was hospitalized for further evaluation of their emergent condition. - New Patient This patient is new to me today: Yes Date on this admission: 12/30/19 - Critical Care Critical Care patient: No - Discharge Referral Referred to [facility] Med P.C.: No
[2019-12-30] MEDS ORDERED: ALBUTEROL SO4 HFA INHALER IH PRN (16:45)
--- NOTE | 2019-12-30 21:52 | PN ---
Progress Note, Physician History of Present Illness: AWAKE, ALERT DIAPHORETIC BREATHING NON-LABORED TEMPS DOWN AFEBRILE - Current Medication List Current Medications: Active Medications Albuterol Sulfate (Ventolin Hfa Inhaler -) 2 puff IH Q4H PRN PRN Reason: SHORT OF BREATH/WHEEZING Enoxaparin Sodium (Lovenox -) 40 mg SQ DAILY LYNDON Last Admin: 12/30/19 10:58 Dose: 40 mg Documented by: Sodium Chloride (Normal Saline -) 1,000 mls @ 100 mls/hr IV ASDIR LYNDON Last Admin: 12/30/19 13:27 Dose: 100 mls/hr Documented by: Ceftriaxone Sodium 1 gm/ (Dextrose) 50 mls @ 200 mls/hr IVPB DAILY LYNDON; Pr otocol Last Admin: 12/30/19 10:58 Dose: 200 mls/hr Documented by: Azithromycin 250 mg/ Dextrose 250 mls @ 250 mls/hr IVPB DAILY LYNDON Last Admin: 12/30/19 10:58 Dose: 250 mls/hr Documented by: - Objective Vital Signs: Vital Signs Temperature 98.2 F 12/30/19 08:48 Pulse Rate 64 12/30/19 10:34 Respiratory Rate 26 H 12/30/19 10:34 Blood Pressure 114/69 12/30/19 10:34 O2 Sat by Pulse Oximetry (%) 93 L 12/30/19 10:34 Constitutional: Yes: No Distress Eyes: Yes: Conjunctiva Clear Cardiovascular: Yes: Regular Rate and Rhythm, S1, S2 Respiratory: Yes: Diminished Gastrointestinal: Yes: Normal Bowel Sounds, Soft. No: Tenderness Labs: CBC, BMP 12/30/19 06:42 12/30/19 06:42 Assessment/Plan PNEUMONIA R/O COVID-19 FEVER IMPROVED ELEVATED LFTS CONTINUE EMPIRIC CEFTRIAXONE/ ZITHROMAX/ HYDROXYCHLOROQUIN CONTINUE AIRBORNE PRECAUTIONS
[2019-12-31] MEDS: SODIUM CHLORIDE 1,000 ML IV SCH ×2 (03:14→11:40)
[2019-12-31 04:31] VITALS: BMI 28.8
[2019-12-31] MEDS ORDERED: cefTRIAXone SODIUM 1 GM VIAL ONE (09:57)
[2019-12-31] MEDS ORDERED: DEXTROSE 5%-WATER - 50 ML IVPB ONE (09:57)
[2019-12-31] MEDS: ENOXAPARIN NA (PORCINE) 40 MG/0.4 ML DISP.SYRIN SQ SCH (09:58)
[2019-12-31] MEDS: AZITHROMYCIN IVPB 250 MG in DEXTROSE 5%-WATER - 250 ML IVPB SCH (09:58)
[2019-12-31] MEDS: CEFTRIAXONE 1 GM in DEXTROSE 5%-WATER - 50 ML IVPB SCH (09:58)
[2019-12-31 11:11] LABS: BASO % 0.1 % (0-2.0); EOS % 1.6 % (0-4.5); HEMATOCRIT 31.3 % (35.4-49); HEMOGLOBIN 10.1 GM/dL (11.7-16.9); LYMPH % 7.5 % (8-40); MCH 22.4 pg (25.7-33.7); MCHC 32.2 g/dl (32.0-35.9); MEAN CELL VOLUME 69.7 fl (80-96); MONO % 7.5 % (3.8-10.2); NEUT % 83.3 % (42.8-82.8); PLATELET COUNT 421 K/MM3 (134-434); RBC 4.49 M/mm3 (4.00-5.60); RDW 16.2 % (11.9-15.9); WHITE BLOOD COUNT 7.1 K/mm3 (4.0-10.0)
[2019-12-31 11:38] LABS: ALBUMIN 2.3 g/dl (3.4-5.0); BILIRUBIN,TOTAL 0.5 mg/dL (0.2-1); BLOOD UREA NITROGEN 12.1 mg/dL (7-18); CALCIUM 7.5 mg/dL (8.5-10.1); CREATININE 0.6 mg/dL (0.55-1.3); MAGNESIUM 2.5 mg/dL (1.8-2.4); POTASSIUM 3.9 mmol/L (3.5-5.1); TOT PROT 5.6 g/dl (6.4-8.2)
--- NOTE | 2019-12-31 21:51 | PN ---
Physical Exam: SUBJECTIVE: Patient seen and examined. SOB at time of exam, s/p walking back from bathroom. SPO2 88% on 5LNC, temporarily bumped oxygen to 6LNC with resolution of hypoxia; placed back on 5LNC. OBJECTIVE: Vital Signs Period Temp Pulse Resp BP Sys/Wong Pulse Ox Last 24 Hr 98.1 F-100.3 F 62-83 19-24 121-138/63-78 93-97 GENERAL: The patient is awake, alert, and fully oriented, in moderate respiratoy distress. HEAD: Normal with no signs of trauma. EYES: PERRL, extraocular movements intact, sclera anicteric, conjunctiva clear. No ptosis. ENT: Ears normal, nares patent, oropharynx clear without exudates, moist mucous membranes. NECK: Trachea midline, full range of motion, supple. LUNGS: Breath sounds equal, clear to auscultation bilaterally, no wheezes, no crackles, no accessory muscle use. HEART: Regular rate and rhythm, S1, S2 without murmur, rub or gallop. ABDOMEN: Soft, nontender, nondistended, normoactive bowel sounds, no guarding, no rebound, no hepatosplenomegaly, no masses. EXTREMITIES: 2+ pulses, warm, well-perfused, no edema. NEUROLOGICAL: Cranial nerves II through XII grossly intact. Normal speech, gait not observed. PSYCH: Normal mood, normal affect. SKIN: Warm, dry, normal turgor, no rashes or lesions noted Laboratory Results - last 24 hr 12/31/19 12/31/19 10:23 10:23 WBC 7.1 RBC 4.49 Hgb 10.1 L Hct 31.3 L MCV 69.7 L MCH 22.4 L MCHC 32.2 RDW 16.2 H Plt Count 421 D MPV 8.0 Absolute Neuts (auto) 5.9 Neutrophils % 83.3 H Lymphocytes % 7.5 L D Monocytes % 7.5 Eosinophils % 1.6 D Basophils % 0.1 Nucleated RBC % 0 Sodium 139 Potassium 3.9 Chloride 109 H Carbon Dioxide 24 Anion Gap 6 L BUN 12.1 Creatinine 0.6 Est GFR (CKD-EPI)AfAm 142.72 Est GFR (CKD-EPI)NonAf 123.14 Random Glucose 120 H Calcium 7.5 L Magnesium 2.5 H Total Bilirubin 0.5 AST 103 H ALT 293 H Alkaline Phosphatase 102 Total Protein 5.6 L Albumin 2.3 L Active Medications Generic Name Dose Route Start Last Admin Trade Name Ankitq PRN Reason Stop Dose Admin Albuterol Sulfate 2 puff 12/30/19 16:45 Ventolin Hfa Inhaler - IH Q4H PRN SHORT OF BREATH/WHEEZING Enoxaparin Sodium 40 mg 12/30/19 10:00 12/31/19 09:58 Lovenox - SQ 40 mg DAILY LYNDON Administration Sodium Chloride 1,000 mls @ 100 mls/hr 12/29/19 11:45 12/31/19 11:40 Normal Saline - IV 100 mls/hr ASDIR LYNDON Administration Ceftriaxone Sodium 1 gm/ 50 mls @ 200 mls/hr 12/30/19 10:00 12/31/19 09:58 Dextrose IVPB 200 mls/hr DAILY LYNDON Administration Protocol Azithromycin 250 mg/ Dextrose 250 mls @ 250 mls/hr 12/30/19 10:00 12/31/19 09:58 IVPB 250 mls/hr DAILY LYNDON Administration ASSESSMENT/PLAN: 44yM with no significant past medical history presented with fever, chills admitted for r/o COVID. Acute respiratory failure in setting of bilateral pneumonia likely due to COVID - plaquenil off active med list. Will obtain ECG and if QTC normal will restart. no hepatic or renal dose adjustment necessary - cont ceftriaxone and azithromycin - cont albuterol MDI PRN, avoid nebulizers in COVID due to risk of aeroso lization - monitor respiratory status closely - conservative fluid strategy, avoid maitenance IVF Elevated LFTs - likely due to covid - cont to monitor DVT PPX - cont lovenox Dispo: pt requires continued inpatient management of his emergent medical condition. Visit type - Emergency Visit Emergency Visit: No - New Patient This patient is new to me today: Yes Date on this admission: 12/31/19 - Critical Care Critical Care patient: No - Discharge Referral Referred to [facility] Med P.C.: No
[2020-01-01 08:07] LABS: ALBUMIN 2.3 g/dl (3.4-5.0); BILIRUBIN,DIRECT 0.2 mg/dL (0.0-0.2); BILIRUBIN,TOTAL 0.5 mg/dL (0.2-1); BLOOD UREA NITROGEN 10.6 mg/dL (7-18); CALCIUM 7.7 mg/dL (8.5-10.1); CREATININE 0.7 mg/dL (0.55-1.3); PHOSPHOROUS 2.8 mg/dL (2.5-4.9); POTASSIUM 3.9 mmol/L (3.5-5.1); TOT PROT 5.7 g/dl (6.4-8.2)
[2020-01-01 08:32] LABS: BASO % 0.3 % (0-2.0); EOS % 2.7 % (0-4.5); HEMATOCRIT 32.7 % (35.4-49); HEMOGLOBIN 10.4 GM/dL (11.7-16.9); MCH 22.5 pg (25.7-33.7); MCHC 31.9 g/dl (32.0-35.9); MEAN CELL VOLUME 70.4 fl (80-96); MONO % 7.7 % (3.8-10.2); NEUT % 78.3 % (42.8-82.8); PLATELET COUNT 483 K/MM3 (134-434); RBC 4.64 M/mm3 (4.00-5.60); RDW 16.4 % (11.9-15.9); WHITE BLOOD COUNT 7.9 K/mm3 (4.0-10.0)
[2020-01-01] MEDS ORDERED: cefTRIAXone SODIUM 1 GM VIAL ONE (08:46)
[2020-01-01] MEDS ORDERED: DEXTROSE 5%-WATER - 50 ML IVPB ONE (08:47)
[2020-01-01] MEDS: ENOXAPARIN NA (PORCINE) 40 MG/0.4 ML DISP.SYRIN SQ SCH (09:48)
[2020-01-01] MEDS: CEFTRIAXONE 1 GM in DEXTROSE 5%-WATER - 50 ML IVPB SCH (09:48)
[2020-01-01] MEDS: AZITHROMYCIN IVPB 250 MG in DEXTROSE 5%-WATER - 250 ML IVPB SCH (09:48)
--- NOTE | 2020-01-01 10:16 | EKG ---
Test Reason : Blood Pressure : / mmHG Vent. Rate : 068 BPM Atrial Rate : 068 BPM P-R Int : 184 ms QRS Dur : 158 ms QT Int : 478 ms P-R-T Axes : 045 070 031 degrees QTc Int : 508 ms NORMAL SINUS RHYTHM RIGHT BUNDLE BRANCH BLOCK ABNORMAL ECG WHEN COMPARED WITH ECG OF 31-DEC-2019 15:32, NO SIGNIFICANT CHANGE WAS FOUND Confirmed by Ronald Jeff MD ([id number]) on 01/01/2020 10:15:27 AM Referred By: Confirmed By:Ronald Jeff MD
--- NOTE | 2020-01-01 10:18 | EKG ---
Test Reason : Blood Pressure : / mmHG Vent. Rate : 070 BPM Atrial Rate : 070 BPM P-R Int : 174 ms QRS Dur : 144 ms QT Int : 488 ms P-R-T Axes : 034 064 033 degrees QTc Int : 527 ms NORMAL SINUS RHYTHM RIGHT BUNDLE BRANCH BLOCK ABNORMAL ECG WHEN COMPARED WITH ECG OF 29-DEC-2019 08:45, QT HAS LENGTHENED Confirmed by Ronald Jeff MD ([id number]) on 01/01/2020 10:18:21 AM Referred By: Confirmed By:Ronald Jeff MD
--- NOTE | 2020-01-01 14:19 | PN ---
Progress Note (short form) - Note Progress Note: Patient is comfortable has low-grade fever he is complaining of shortness of breath when he goes to the bathroom but at rest he is comfortable on 6 L nasal cannula oxygen. Vital Signs Period Temp Pulse Resp BP Sys/Wong Pulse Ox Last 24 Hr 98.2 F-100.3 F 65-98 20-22 109-129/56-67 94-95 Examination He is alert awake oriented comfortable but mild respiratory distress. HEENT no pallor neck supple negative JVD Lungs bilateral coarse breath sounds and mild crackles Heart S1-S2 positive nontender abdomen and soft extremities no edema neurologically is alert awake oriented nonfocal. CBC, BMP 01/01/20 06:40 ASSESSMENT/PLAN: 44yM with no significant past medical history presented with fever, chills admitted for r/o COVID. His COVID-19 test is still pending continue ceftriaxone azithromycin. Discussed with ID for continuing dose of hydroxychloroquine. Continue oxygen support Elevated liver function test may be due to COVID-19 will continue to monitor. Visit type - Emergency Visit Emergency Visit: Yes ED Registration Date: 12/29/19 Care time: The patient presented to the Emergency Department on the above date and was hospitalized for further evaluation of their emergent condition. - New Patient This patient is new to me today: Yes Date on this admission: 01/01/20 - Critical Care Critical Care patient: No - Discharge Referral Referred to [facility] Med P.C.: No
[2020-01-01 15:38] LABS: MAGNESIUM 2.5 mg/dL (1.8-2.4)
[2020-01-01 16:09] LABS: HEP B CORE AB, TOT Negative (Negative)
[2020-01-01] MEDS: SODIUM CHLORIDE 1,000 ML IV SCH (21:18)
[2020-01-02] MEDS ORDERED: DEXTROSE 5%-WATER - 50 ML IVPB ONE (07:45)
[2020-01-02] MEDS ORDERED: cefTRIAXone SODIUM 1 GM VIAL ONE (07:45)
[2020-01-02 08:31] LABS: BASO % 0.4 % (0-2.0); EOS % 3.1 % (0-4.5); HEMATOCRIT 31.5 % (35.4-49); HEMOGLOBIN 10.3 GM/dL (11.7-16.9); LYMPH % 12.3 % (8-40); MCH 22.7 pg (25.7-33.7); MCHC 32.8 g/dl (32.0-35.9); MEAN CELL VOLUME 69.2 fl (80-96); MEAN PLT VOLUME 7.6 fl (7.5-11.1); MONO % 7.5 % (3.8-10.2); NEUT % 76.7 % (42.8-82.8); PLATELET COUNT 538 K/MM3 (134-434); RBC 4.55 M/mm3 (4.00-5.60); RDW 16.4 % (11.9-15.9); WHITE BLOOD COUNT 7.4 K/mm3 (4.0-10.0)
[2020-01-02] MEDS ORDERED: MAGNESIUM SULF 50% (8.12 MEQ/2 ML-1 GM VIAL) IVPB ONE (09:00)
[2020-01-02 09:02] LABS: ALBUMIN 2.2 g/dl (3.4-5.0); BILIRUBIN,TOTAL 0.3 mg/dL (0.2-1); CALCIUM 7.7 mg/dL (8.5-10.1); CREATININE 0.6 mg/dL (0.55-1.3); MAGNESIUM 2.5 mg/dL (1.8-2.4); POTASSIUM 4.1 mmol/L (3.5-5.1); TOT PROT 5.6 g/dl (6.4-8.2)
[2020-01-02] MEDS: ENOXAPARIN NA (PORCINE) 40 MG/0.4 ML DISP.SYRIN SQ SCH (10:57)
[2020-01-02] MEDS: CEFTRIAXONE 1 GM in DEXTROSE 5%-WATER - 50 ML IVPB SCH (10:57)
[2020-01-02] MEDS: SODIUM CHLORIDE 1,000 ML IV SCH (12:00)
--- NOTE | 2020-01-02 12:40 | PN ---
Physical Exam: Subjective: Patient seen and examined at bedside, c/o SOB [place]. when ambulating to bathroom, on NC O2, denies SOB at rest, will cont. to monitor. Objective: HEENT NC/AT, EOMI, speaking in full sentences Chest coarse b/l BS, scattered wheezes CVS s1, S2+, RRR Abd Soft, NT, ND Ext No LE edema Vital Signs - 24 hr 01/01/20 01/01/20 01/01/20 14:00 18:00 21:00 Temperature 99 F 99 F Pulse Rate 66 60 Respiratory 18 20 20 Rate Blood Pressure 116/60 116/72 O2 Sat by Pulse 95 Oximetry (%) 01/01/20 01/02/20 01/02/20 21:17 01:00 05:00 Temperature 98.2 F 98.1 F 98.2 F Pulse Rate 61 60 68 Respiratory 20 20 20 Rate Blood Pressure 110/64 110/65 122/70 O2 Sat by Pulse Oximetry (%) 01/02/20 09:00 Temperature 98.0 F Pulse Rate 63 Respiratory 22 H Rate Blood Pressure 120/66 O2 Sat by Pulse 94 L Oximetry (%) Microbiology 12/29/19 16:55 Urine For Antigen Detection Streptococcus pneumoniae Antigen (M - Final Laboratory Results - last 24 hr 12/31/19 01/01/20 01/01/20 10:23 06:00 06:40 WBC RBC Hgb Hct MCV MCH MCHC RDW Plt Count MPV Absolute Neuts (auto) Neutrophils % Lymphocytes % Monocytes % Eosinophils % Basophils % Nucleated RBC % Sodium 139 Cancelled Potassium 3.9 Cancelled Chloride 108 H Cancelled Carbon Dioxide 22 Cancelled Anion Gap 9 Cancelled BUN 10.6 Cancelled Creatinine 0.7 Cancelled Est GFR (CKD-EPI)AfAm 133.96 Cancelled Est GFR (CKD-EPI)NonAf 115.58 Cancelled Random Glucose 102 Cancelled Calcium 7.7 L Cancelled Phosphorus 2.8 Magnesium 2.5 H Cancelled Total Bilirubin 0.5 Cancelled Direct Bilirubin 0.2 AST 56 H Cancelled ALT 223 H Cancelled Alkaline Phosphatase 96 Cancelled Total Protein 5.7 L Cancelled Albumin 2.3 L Cancelled Hep A IgM Ab Confirm Negative Hepatitis A Ab Total Positive H Hep Bs Antigen Negative Hep Bs Antibody Non reactive Hep B Core Total Ab Negative Hep B Core IgM Ab Negative Hepatitis Be Antibody Negative Hepatitis Be Antigen Negative 01/02/20 01/02/20 08:05 08:05 WBC 7.4 RBC 4.55 Hgb 10.3 L Hct 31.5 L MCV 69.2 L MCH 22.7 L MCHC 32.8 RDW 16.4 H Plt Count 538 H MPV 7.6 Absolute Neuts (auto) 5.7 Neutrophils % 76.7 Lymphocytes % 12.3 Monocytes % 7.5 Eosinophils % 3.1 Basophils % 0.4 Nucleated RBC % 0 Sodium 139 Potassium 4.1 Chloride 109 H Carbon Dioxide 22 Anion Gap 8 BUN 13.0 Creatinine 0.6 Est GFR (CKD-EPI)AfAm 142.72 Est GFR (CKD-EPI)NonAf 123.14 Random Glucose 91 Calcium 7.7 L Phosphorus Magnesium 2.5 H Total Bilirubin 0.3 Direct Bilirubin AST 54 H ALT 187 H Alkaline Phosphatase 86 Total Protein 5.6 L Albumin 2.2 L Hep A IgM Ab Confirm Hepatitis A Ab Total Hep Bs Antigen Hep Bs Antibody Hep B Core Total Ab Hep B Core IgM Ab Hepatitis Be Antibody Hepatitis Be Antigen Home Medications Medication Instructions Recorded Ibuprofen [Motrin -] 600 mg PO TID #30 tablet 03/06/18 Current Medications Generic Name Dose Route Start Last Admin Trade Name Freq PRN Reason Stop Dose Admin Albuterol Sulfate 2 puff 12/30/19 16:45 Ventolin Hfa Inhaler - IH Q4H PRN SHORT OF BREATH/WHEEZING Enoxaparin Sodium 40 mg 12/30/19 10:00 01/02/20 10:57 Lovenox - SQ 40 mg DAILY [facility] Administration Sodium Chloride 1,000 mls @ 100 mls/hr 12/29/19 11:45 01/01/20 21:18 Normal Saline - IV Not Given ASDIR LYNDON Ceftriaxone Sodium 1 gm/ 50 mls @ 200 mls/hr 12/30/19 10:00 01/02/20 10:57 Dextrose IVPB 200 mls/hr DAILY [facility] Administration Protocol A/p: 44 M , no significant PMHx, presents with fever, chills, cough and SOB suspicious for COVID-19 infection. Suspected COVID 19 NC O2 to titrate O2 >90% cont. empiric Azithromycin ID eval for empiric Plaquenil Monitor breathing closely Notify family of suspicious findings for COVID Strict isolation precautions Microcytic anemia RDW high likely iron def., Ferritin WNL but this can be an acute phase reactant Will send serum Iron/TIBC/transferrin sat. Ferrous sulfate w/ Vit C, supplement w/ bowel regimen DVT ppx: Lovenox SC Isolation precaution Visit type - Emergency Visit Emergency Visit: Yes ED Registration Date: 12/29/19 Care time: The patient presented to the Emergency Department on the above date and was hospitalized for further evaluation of their emergent condition. - New Patient This patient is new to me today: Yes Date on this admission: 01/02/20 - Critical Care Critical Care patient: No - Discharge Referral Referred to [facility] Med [facility].C[facility] No
--- NOTE | 2020-01-02 13:06 | EKG ---
Test Reason : Blood Pressure : / mmHG Vent. Rate : 061 BPM Atrial Rate : 061 BPM P-R Int : 190 ms QRS Dur : 160 ms QT Int : 474 ms P-R-T Axes : 037 066 032 degrees QTc Int : 477 ms NORMAL SINUS RHYTHM RIGHT BUNDLE BRANCH BLOCK ABNORMAL ECG WHEN COMPARED WITH ECG OF 01-JAN-2020 00:33, NO SIGNIFICANT CHANGE WAS FOUND Confirmed by KAYLA CEBALLOS MD ([id number]) on 01/02/2020 1:05:52 PM Referred By: TAMAR DUMONT Confirmed By:KAYLA CEBALLOS MD
[2020-01-02] MEDS: HYDROXYCHLOROQUINE SO4 200 MG TABLET (FP) PO SCH (21:02)
[2020-01-03 07:21] LABS: BASO % 0.4 % (0-2.0); HEMATOCRIT 31.8 % (35.4-49); HEMOGLOBIN 10.3 GM/dL (11.7-16.9); LYMPH % 19.2 % (8-40); MCH 22.3 pg (25.7-33.7); MCHC 32.2 g/dl (32.0-35.9); MEAN CELL VOLUME 69.3 fl (80-96); MEAN PLT VOLUME 7.9 fl (7.5-11.1); MONO % 10.1 % (3.8-10.2); NEUT % 66.3 % (42.8-82.8); PLATELET COUNT 578 K/MM3 (134-434); RDW 16.7 % (11.9-15.9); WHITE BLOOD COUNT 5.2 K/mm3 (4.0-10.0)
[2020-01-03 07:54] LABS: ALBUMIN 2.2 g/dl (3.4-5.0); BILIRUBIN,TOTAL 0.2 mg/dL (0.2-1); BLOOD UREA NITROGEN 10.6 mg/dL (7-18); CALCIUM 7.9 mg/dL (8.5-10.1); CREATININE 0.6 mg/dL (0.55-1.3); MAGNESIUM 2.3 mg/dL (1.8-2.4); POTASSIUM 4.2 mmol/L (3.5-5.1); TOT PROT 5.5 g/dl (6.4-8.2)
[2020-01-03] MEDS ORDERED: cefTRIAXone SODIUM 1 GM VIAL ONE (09:47)
[2020-01-03] MEDS ORDERED: PT OWN MED DRAWER 7, Y5N ONE (09:47)
[2020-01-03] MEDS ORDERED: DEXTROSE 5%-WATER - 50 ML IVPB ONE (09:48)
[2020-01-03] MEDS: ENOXAPARIN NA (PORCINE) 40 MG/0.4 ML DISP.SYRIN SQ SCH (10:27)
[2020-01-03] MEDS: CEFTRIAXONE 1 GM in DEXTROSE 5%-WATER - 50 ML IVPB SCH (10:27)
[2020-01-03] MEDS: HYDROXYCHLOROQUINE SO4 200 MG TABLET (FP) PO SCH ×2 (10:30→22:32)
[2020-01-03] MEDS: SODIUM CHLORIDE 1,000 ML IV SCH (10:30)
[2020-01-03] MEDS ORDERED: ALBUTEROL SO4 HFA INHALER IH PRN (13:07)
[2020-01-03] MEDS ORDERED: IRON SUCROSE INJECTION 100 MG in SODIUM CHLORIDE 95 ML IVPB ONE (13:28)
--- NOTE | 2020-01-03 16:57 | PN ---
Physical Exam: SUBJECTIVE: Patient seen and examined at bedside, breathing improved, afebrile, now satting 92% on 4L, will evaluate for psosible DC with home O2. OBJECTIVE: Vital Signs Period Temp Pulse Resp BP Sys/Wong Pulse Ox Last 24 Hr 98.1 F-98.8 F 54-59 20-20 114-128/51-72 92-95 Objective: HEENT NC/AT, EOMI, speaking in full sentences Chest coarse b/l BS, no increased WOB CVS s1, S2+, RRR Abd Soft, NT, ND Ext No LE edema Laboratory Results - last 24 hr 01/03/20 01/03/20 05:50 05:50 WBC 5.2 RBC 4.60 Hgb 10.3 L Hct 31.8 L MCV 69.3 L MCH 22.3 L MCHC 32.2 RDW 16.7 H Plt Count 578 H MPV 7.9 Absolute Neuts (auto) 3.4 Neutrophils % 66.3 Lymphocytes % 19.2 D Monocytes % 10.1 Eosinophils % 4.0 Basophils % 0.4 Nucleated RBC % 0 Sodium 140 Potassium 4.2 Chloride 110 H Carbon Dioxide 21 Anion Gap 9 BUN 10.6 Creatinine 0.6 Est GFR (CKD-EPI)AfAm 142.72 Est GFR (CKD-EPI)NonAf 123.14 Random Glucose 84 Calcium 7.9 L Magnesium 2.3 Iron 39 L TIBC 202 L Iron Saturation 19 Unsaturated IBC 163 L Total Bilirubin 0.2 AST 47 H ALT 161 H Alkaline Phosphatase 82 Total Protein 5.5 L Albumin 2.2 L Active Medications Generic Name Dose Route Start Last Admin Trade Name Freq PRN Reason Stop Dose Admin Albuterol Sulfate 2 puff 01/03/20 13:07 Ventolin Hfa Inhaler - IH Q4H PRN SHORT OF BREATH/WHEEZING Enoxaparin Sodium 40 mg 01/04/20 10:00 Lovenox - SQ DAILY [facility] Hydroxychloroquine Sulfate 200 mg 01/03/20 22:00 Plaquenil - PO BID [facility] Ceftriaxone Sodium 1 gm/ 50 mls @ 200 mls/hr 01/04/20 10:00 Dextrose IVPB DAILY [facility] Protocol ASSESSMENT/PLAN: 44 M , no significant PMHx, presents with fever, chills, cough and SOB suspicious for COVID-19 infection. Suspected COVID 19 NC O2 to titrate O2 >90% cont. empiric Azithromycin/Plaquenil, QTc OK Monitor breathing closely Strict isolation precautions ID evaluation: ?DC home with oxygen therapy as pt. is afebrile Microcytic anemia RDW high, iron low, TIBC low, 2/2 MARIBEL IV Venofer 100mg Ferrous sulfate w/ Vit C, supplement w/ bowel regimen DVT ppx: Lovenox SC Isolation precaution ?DC home with oxygen therapy and quarantine Visit type - Emergency Visit Emergency Visit: Yes ED Registration Date: 12/29/19 Care time: The patient presented to the Emergency Department on the above date and was hospitalized for further evaluation of their emergent condition. - New Patient This patient is new to me today: No - Critical Care Critical Care patient: No - Discharge Referral Referred to [facility] Med P.C.: No
[2020-01-04 07:19] LABS: BASO % 0.5 % (0-2.0); HEMATOCRIT 31.8 % (35.4-49); HEMOGLOBIN 10.4 GM/dL (11.7-16.9); LYMPH % 23.5 % (8-40); MCH 22.8 pg (25.7-33.7); MCHC 32.7 g/dl (32.0-35.9); MEAN CELL VOLUME 69.7 fl (80-96); MEAN PLT VOLUME 7.6 fl (7.5-11.1); MONO % 10.9 % (3.8-10.2); NEUT % 62.1 % (42.8-82.8); PLATELET COUNT 650 K/MM3 (134-434); RBC 4.57 M/mm3 (4.00-5.60); RDW 16.7 % (11.9-15.9); WHITE BLOOD COUNT 4.4 K/mm3 (4.0-10.0)
[2020-01-04 07:47] LABS: ALBUMIN 2.2 g/dl (3.4-5.0); BILIRUBIN,TOTAL 0.2 mg/dL (0.2-1); BLOOD UREA NITROGEN 10.1 mg/dL (7-18); CREATININE 0.7 mg/dL (0.55-1.3); POTASSIUM 4.4 mmol/L (3.5-5.1); TOT PROT 5.6 g/dl (6.4-8.2)
--- NOTE | 2020-01-04 08:34 | PN ---
Progress Note, Physician Chief Complaint: c/o SOB when ambulating. Feels his cough is improved, poor appetite. Feels he is not ready for discharge History of Present Illness: 44yM with no significant past medical history presented with fever, chills now COVID +. - Current Medication List Current Medications: Active Medications Albuterol Sulfate (Ventolin Hfa Inhaler -) 2 puff IH Q4H PRN PRN Reason: SHORT OF BREATH/WHEEZING Enoxaparin Sodium (Lovenox -) 40 mg SQ DAILY [facility] Hydroxychloroquine Sulfate (Plaquenil -) 200 mg PO BID [facility] Last Admin: 01/03/20 22:32 Dose: 200 mg Documented by: Ceftriaxone Sodium 1 gm/ (Dextrose) 50 mls @ 200 mls/hr IVPB DAILY [facility]; Aida col - Objective Vital Signs: Vital Signs Temperature 97.5 F L 01/04/20 06:00 Pulse Rate 59 L 01/04/20 06:00 Respiratory Rate 01/04/20 06:00 Blood Pressure 118/69 01/04/20 06:00 O2 Sat by Pulse Oximetry (%) 93 L 01/03/20 21:00 Constitutional: Yes: Well Nourished, No Distress, Calm Eyes: Yes: WNL, Conjunctiva Clear HENT: Yes: WNL, Atraumatic, Normocephalic Neck: Yes: WNL, Supple, Trachea Midline Cardiovascular: Yes: WNL, Regular Rate and Rhythm Respiratory: Yes: Regular, Diminished, On Nasal O2 (at bases) Gastrointestinal: Yes: WNL, Normal Bowel Sounds ...Rectal Exam: Yes: Deferred Genitourinary: Yes: WNL Breast(s): Yes: WNL Musculoskeletal: Yes: WNL Extremities: Yes: WNL Edema: No Peripheral Pulses WNL: Yes Peripheral Pulses: Left Radial: 2+, Right Radial: 2+, Left Doralis Pedis: 2+, Right Dorsalis Pedis: 2+, Left Femoral: 2+, Right Femoral: 2+ Integumentary: Yes: WNL Neurological: Yes: WNL, Alert, Oriented ...Motor Strength: WNL Psychiatric: Yes: WNL Labs: CBC, BMP 01/04/20 05:55 01/04/20 05:55 - ....Imaging Chest X-ray: Image Reviewed (BL Infiltrates) Problem List - Problems (1) COVID-19 virus detected Assessment/Plan: COVID + maintain SPO2 > 88% completed axithromycin x 5 days c/w plaquenil montior QTc ING bronchodilators strict airborne/droplet precautions Code(s): U07.1 - (2) Transaminitis Assessment/Plan: AST/ALt trending down avoid nephrotoxic agents Code(s): R74.0 - NONSPEC ELEV OF LEVELS OF TRANSAMNS & LACTIC ACID DEHYDRGNSE (3) Prophylactic measure Assessment/Plan: FEN Fluids: adequate PO intake Electrolytes: monitor & replete as needed Nutrition: regular diet DVT moderate risk sq lovenox Dispo Maintain as inpatient full code discharge planning-possible dc home tomorrow with home O2? Code(s): Z29.9 - ENCOUNTER FOR PROPHYLACTIC MEASURES, UNSPECIFIED (4) Microcytic anemia Assessment/Plan: RDW high, iron low, TIBC low, 2/2 MARIBEL IV Venofer 100mg Ferrous sulfate w/ Vit C, supplement w/ bowel regimen continue to monitor Code(s): D50.9 - IRON DEFICIENCY ANEMIA, UNSPECIFIED Visit type - Emergency Visit Emergency Visit: Yes ED Registration Date: 12/29/19 Care time: The patient presented to the Emergency Department on the above date and was hospitalized for further evaluation of their emergent condition. - New Patient This patient is new to me today: Yes Date on this admission: 01/04/20 - Critical Care Critical Care patient: No - Discharge Referral Referred to [facility] Med P.C.: No
[2020-01-04] MEDS ORDERED: cefTRIAXone SODIUM 1 GM VIAL ONE (09:01)
[2020-01-04] MEDS ORDERED: DEXTROSE 5%-WATER - 50 ML IVPB ONE (09:01)
[2020-01-04] MEDS: ENOXAPARIN NA (PORCINE) 40 MG/0.4 ML DISP.SYRIN SQ SCH (09:35)
[2020-01-04] MEDS: HYDROXYCHLOROQUINE SO4 200 MG TABLET (FP) PO SCH ×2 (09:35→21:10)
[2020-01-04] MEDS: CEFTRIAXONE 1 GM in DEXTROSE 5%-WATER - 50 ML IVPB SCH (09:36)
[2020-01-04 11:35] LABS: ANISOCYTOSIS 1+; PLATELET ESTIMATE INCREASED
--- NOTE | 2020-01-05 07:47 | DS ---
Physical Exam: SUBJECTIVE: Patient seen and examined OBJECTIVE: Vital Signs Period Temp Pulse Resp BP Sys/Wong Pulse Ox Last 24 Hr 97.8 F-98.2 F 55-63 20-20 92-126/51-78 93-95 PHYSICAL EXAM GENERAL: The patient is awake, alert, and fully oriented, in no acute distress. HEAD: Normal with no signs of trauma. EYES: PERRL, extraocular movements intact, sclera anicteric, conjunctiva clear. ENT: Ears normal, nares patent, oropharynx clear without exudates, moist mucous membranes. NECK: Trachea midline, full range of motion, supple. LUNGS: Breath sounds equal, clear to auscultation bilaterally, no wheezes, no crackles, no accessory muscle use. HEART: Regular rate and rhythm, S1, S2 without murmur, rub or gallop. ABDOMEN: Soft, nontender, nondistended, normoactive bowel sounds, no guarding, no rebound, no hepatosplenomegaly, no masses. EXTREMITIES: 2+ pulses, warm, well-perfused, no edema. NEUROLOGICAL: Cranial nerves II through XII grossly intact. Normal speech, gait not observed. PSYCH: Normal mood, normal affect. SKIN: Warm, dry, normal turgor, no rashes or lesions noted. LABS Laboratory Results - last 24 hr 01/04/20 01/04/20 05:55 05:55 WBC 4.4 RBC 4.57 Hgb 10.4 L Hct 31.8 L MCV 69.7 L MCH 22.8 L MCHC 32.7 RDW 16.7 H Plt Count 650 H MPV 7.6 Absolute Neuts (auto) 2.7 Neutrophils % 62.1 Neutrophils % (Manual) 72.0 Band Neutrophils % 1.0 Lymphocytes % 23.5 D Lymphocytes % (Manual) 20.0 Monocytes % 10.9 H Monocytes % (Manual) 2 L Eosinophils % 3.0 Eosinophils % (Manual) 2.0 Basophils % 0.5 Basophils % (Manual) 0.0 Myelocytes % (Man) 2 Nucleated RBC % 0 Metamyelocytes 1 Hypochromia 1+ Platelet Estimate Increased Anisocytosis 1+ Sodium 140 Potassium 4.4 Chloride 110 H Carbon Dioxide 22 Anion Gap 8 BUN 10.1 Creatinine 0.7 Est GFR (CKD-EPI)AfAm 133.96 Est GFR (CKD-EPI)NonAf 115.58 Random Glucose 86 Calcium 8.0 L Total Bilirubin 0.2 AST 54 H ALT 159 H Alkaline Phosphatase 80 Total Protein 5.6 L Albumin 2.2 L HOSPITAL COURSE: Date of Admission:12/29/19 Date of Discharge: 01/05/20 Minutes to complete discharge: 35 Discharge Summary Problems reviewed: Yes Reason For Visit: RESPITORY FAILURE Current Active Problems COVID-19 virus detected (Acute) DVT prophylaxis (Acute) Diarrhea (Acute) Microcytic anemia (Acute) Pneumonia (Acute) Prophylactic measure (Acute) Respiratory failure (Acute) Suspected 2019 novel coronavirus infection (Acute) Transaminitis (Acute) Viral illness (Acute) Condition: Stable - Instructions Referrals: Lachelle Torres MD [Primary Care Provider] - - Home Medications Comprehensive Discharge Medication List: Ambulatory Orders Ibuprofen [Motrin -] 600 mg PO TID #30 tablet 03/06/18 Problem List - Problems (1) COVID-19 virus detected Code(s): U07.1 - (2) Transaminitis Code(s): R74.0 - NONSPEC ELEV OF LEVELS OF TRANSAMNS & LACTIC ACID DEHYDRGNSE (3) Prophylactic measure Code(s): Z29.9 - ENCOUNTER FOR PROPHYLACTIC MEASURES, UNSPECIFIED (4) Microcytic anemia Code(s): D50.9 - IRON DEFICIENCY ANEMIA, UNSPECIFIED - Discharge Referral Referred to [facility] Med P.C.: No
[2020-01-05] MEDS: ENOXAPARIN NA (PORCINE) 40 MG/0.4 ML DISP.SYRIN SQ SCH (09:31)
[2020-01-05] MEDS: HYDROXYCHLOROQUINE SO4 200 MG TABLET (FP) PO SCH ×2 (09:31→21:30)
[2020-01-05] MEDS ORDERED: cefTRIAXone SODIUM 1 GM VIAL ONE (09:59)
[2020-01-05] MEDS ORDERED: DEXTROSE 5%-WATER - 50 ML IVPB ONE (09:59)
[2020-01-05] MEDS: CEFTRIAXONE 1 GM in DEXTROSE 5%-WATER - 50 ML IVPB SCH (10:05)
--- NOTE | 2020-01-05 14:20 | PN ---
Progress Note, Physician Chief Complaint: Feels his cough is improved, appetite better. Concerned that ne will be SOB off O2 at home History of Present Illness: 44yM with no significant past medical history presented with fever, chills now COVID +. - Current Medication List Current Medications: Active Medications Albuterol Sulfate (Ventolin Hfa Inhaler -) 2 puff IH Q4H PRN PRN Reason: SHORT OF BREATH/WHEEZING Enoxaparin Sodium (Lovenox -) 40 mg SQ DAILY [facility] Last Admin: 01/05/20 09:31 Dose: 40 mg Documented by: Hydroxychloroquine Sulfate (Plaquenil -) 200 mg PO BID [facility] Stop: 01/07/20 10:01 Last Admin: 01/05/20 09:31 Dose: 200 mg Documented by: Ceftriaxone Sodium 1 gm/ (Dextrose) 50 mls @ 200 mls/hr IVPB DAILY [facility]; Protocol Last Admin: 01/05/20 10:05 Dose: Not Given Documented by: - Objective Vital Signs: Vital Signs Temperature 97.7 F 01/05/20 14:00 Pulse Rate 65 01/05/20 14:00 Respiratory Rate 20 01/05/20 14:00 Blood Pressure 101/50 L 01/05/20 14:00 O2 Sat by Pulse Oximetry (%) 92 L 01/05/20 09:29 Additional Findings/Remarks: Constitutional: Yes: Well Nourished, No Distress, Calm Eyes: Yes: WNL, Conjunctiva Clear HENT: Yes: WNL, Atraumatic, Normocephalic Neck: Yes: WNL, Supple, Trachea Midline Cardiovascular: Yes: WNL, Regular Rate and Rhythm Respiratory: Yes: Regular, Diminished, On Nasal O2 (at bases) Gastrointestinal: Yes: WNL, Normal Bowel Sounds ...Rectal Exam: Yes: Deferred Genitourinary: Yes: WNL Breast(s): Yes: WNL Musculoskeletal: Yes: WNL Extremities: Yes: WNL Edema: No Peripheral Pulses WNL: Yes Peripheral Pulses: Left Radial: 2+, Right Radial: 2+, Left Doralis Pedis: 2+, Right Dorsalis Pedis: 2+, Left Femoral: 2+, Right Femoral: 2+ Integumentary: Yes: WNL Neurological: Yes: WNL, Alert, Oriented ...Motor Strength: WNL Psychiatric: Yes: WNL Labs: CBC, BMP 01/04/20 05:55 01/04/20 05:55 Problem List - Problems (1) COVID-19 virus detected Assessment/Plan: COVID + maintain SPO2 > 88% SPO2 decreased to 88 and beacme dizzy after ambulating off O2 completed axithromycin x 5 days c/w plaquenil montior QTc INH bronchodilators strict airborne/droplet precautions Code(s): U07.1 - (2) Transaminitis Assessment/Plan: AST/ALt trending down avoid nephrotoxic agents Code(s): R74.0 - NONSPEC ELEV OF LEVELS OF TRANSAMNS & LACTIC ACID DEHYDRGNSE (3) Prophylactic measure Assessment/Plan: FEN Fluids: adequate PO intake Electrolytes: monitor & replete as needed Nutrition: regular diet DVT moderate risk sq lovenox Dispo Maintain as inpatient full code discharge planning-possible dc home tomorrow with home O2? Code(s): Z29.9 - ENCOUNTER FOR PROPHYLACTIC MEASURES, UNSPECIFIED (4) Microcytic anemia Assessment/Plan: RDW high, iron low, TIBC low, 2/2 MARIBEL IV Venofer 100mg Ferrous sulfate w/ Vit C, supplement w/ bowel regimen continue to monitor Code(s): D50.9 - IRON DEFICIENCY ANEMIA, UNSPECIFIED (5) Prophylactic measure Assessment/Plan: FEN Fluids: adequate PO intake Electrolytes: monitor & replete as needed Nutrition: reg diet DVT moderate risk sq heparin Dispo Maintain as inpatient full code discharge planning to home with possible O2 Code(s): Z29.9 - ENCOUNTER FOR PROPHYLACTIC MEASURES, UNSPECIFIED Visit type - Emergency Visit Emergency Visit: Yes ED Registration Date: 12/29/19 Care time: The patient presented to the Emergency Department on the above date and was hospitalized for further evaluation of their emergent condition. - New Patient This patient is new to me today: No - Critical Care Critical Care patient: No - Discharge Referral Referred to [facility] Med P.C.: No
[2020-01-05] MEDS ORDERED: PT OWN MED DRAWER 7, Y5N ONE (14:58)
[2020-01-06 07:27] LABS: BASO % 0.5 % (0-2.0); HEMOGLOBIN 10.5 GM/dL (11.7-16.9); LYMPH % 27.3 % (8-40); MCHC 32.7 g/dl (32.0-35.9); MEAN CELL VOLUME 70.3 fl (80-96); MEAN PLT VOLUME 7.4 fl (7.5-11.1); MONO % 11.6 % (3.8-10.2); NEUT % 58.6 % (42.8-82.8); PLATELET COUNT 635 K/MM3 (134-434); RBC 4.55 M/mm3 (4.00-5.60); RDW 16.6 % (11.9-15.9); WHITE BLOOD COUNT 5.5 K/mm3 (4.0-10.0)
[2020-01-06 07:50] LABS: ALBUMIN 2.7 g/dl (3.4-5.0); BILIRUBIN,TOTAL 0.4 mg/dL (0.2-1); BLOOD UREA NITROGEN 14.5 mg/dL (7-18); CREATININE 0.9 mg/dL (0.55-1.3); MAGNESIUM 2.5 mg/dL (1.8-2.4); POTASSIUM 4.8 mmol/L (3.5-5.1); TOT PROT 6.4 g/dl (6.4-8.2)
--- NOTE | 2020-01-06 07:57 | DS ---
Physical Exam: SUBJECTIVE: Patient seen and examined OBJECTIVE: Vital Signs Period Temp Pulse Resp BP Sys/Wnog Pulse Ox Last 24 Hr 97.6 F-98.7 F 52-65 18-20 94-107/48-65 92-98 PHYSICAL EXAM GENERAL: The patient is awake, alert, and fully oriented, in no acute distress. HEAD: Normal with no signs of trauma. EYES: PERRL, extraocular movements intact, sclera anicteric, conjunctiva clear. ENT: Ears normal, nares patent, oropharynx clear without exudates, moist mucous membranes. NECK: Trachea midline, full range of motion, supple. LUNGS: Breath sounds equal, clear to auscultation bilaterally, no wheezes, no crackles, no accessory muscle use. HEART: Regular rate and rhythm, S1, S2 without murmur, rub or gallop. ABDOMEN: Soft, nontender, nondistended, normoactive bowel sounds, no guarding, no rebound, no hepatosplenomegaly, no masses. EXTREMITIES: 2+ pulses, warm, well-perfused, no edema. NEUROLOGICAL: Cranial nerves II through XII grossly intact. Normal speech, gait not observed. PSYCH: Normal mood, normal affect. SKIN: Warm, dry, normal turgor, no rashes or lesions noted. LABS Laboratory Results - last 24 hr 01/06/20 01/06/20 05:40 05:40 WBC 5.5 RBC 4.55 Hgb 10.5 L Hct 32.0 L MCV 70.3 L MCH 23.0 L MCHC 32.7 RDW 16.6 H Plt Count 635 H MPV 7.4 L Absolute Neuts (auto) 3.2 Neutrophils % 58.6 Lymphocytes % 27.3 Monocytes % 11.6 H Eosinophils % 2.0 Basophils % 0.5 Nucleated RBC % 0 Sodium 139 Potassium 4.8 Chloride 107 Carbon Dioxide 27 Anion Gap 6 L BUN 14.5 Creatinine 0.9 Est GFR (CKD-EPI)AfAm 120.81 Est GFR (CKD-EPI)NonAf 104.24 Random Glucose 88 Calcium 8.0 L Magnesium 2.5 H Total Bilirubin 0.4 AST 94 H ALT 226 H Alkaline Phosphatase 83 Total Protein 6.4 Albumin 2.7 L HOSPITAL COURSE: Date of Admission:12/29/19 Date of Discharge: 01/06/20 Problem List - Problems (1) COVID-19 virus detected Assessment/Plan: COVID + maintain SPO2 > 88% SPO2 decreased to 88 and became dizzy after ambulating off O2. Home O2 ordered completed axithromycin x 5 days c/w plaquenil to complete course QTc within normal limits INH bronchodilators prn at home strict airborne/droplet precautions Code(s): U07.1 - (2) Transaminitis Assessment/Plan: AST/ALt trended down avoid nephrotoxic agents Code(s): R74.0 - NONSPEC ELEV OF LEVELS OF TRANSAMNS & LACTIC ACID DEHYDRGNSE (3) Microcytic anemia Assessment/Plan: RDW high, iron low, TIBC low, 2/2 MARIBEL IV Venofer 100mg given Ferrous sulfate w/ Vit C, supplement w/ bowel regimen stable Code(s): D50.9 - IRON DEFICIENCY ANEMIA, UNSPECIFIED Stable for discharge to home with strict quarantine guidelines as per the [facility]. Minutes to complete discharge: 35 Discharge Summary Problems reviewed: Yes Reason For Visit: RESPITORY FAILURE Current Active Problems COVID-19 virus detected (Acute) DVT prophylaxis (Acute) Diarrhea (Acute) Microcytic anemia (Acute) Pneumonia (Acute) Prophylactic measure (Acute) Prophylactic measure (Acute) Respiratory failure (Acute) Suspected 2019 novel coronavirus infection (Acute) Transaminitis (Acute) Viral illness (Acute) Condition: Improved - Instructions Referrals: Lachelle Torres MD [Primary Care Provider] - Disposition: HOME - Home Medications Comprehensive Discharge Medication List: Ambulatory Orders Ibuprofen [Motrin -] 600 mg PO TID #30 tablet 03/06/18 Prescription Drug Monitoring Program (I-STOP) results: I-STOP not reviewed Problem List - Problems (1) COVID-19 virus detected Code(s): U07.1 - (2) Transaminitis Code(s): R74.0 - NONSPEC ELEV OF LEVELS OF TRANSAMNS & LACTIC ACID DEHYDRGNSE (3) Prophylactic measure Code(s): Z29.9 - ENCOUNTER FOR PROPHYLACTIC MEASURES, UNSPECIFIED (4) Microcytic anemia Code(s): D50.9 - IRON DEFICIENCY ANEMIA, UNSPECIFIED (5) Prophylactic measure Code(s): Z29.9 - ENCOUNTER FOR PROPHYLACTIC MEASURES, UNSPECIFIED This patient is new to me today: No Emergency Visit: Yes ED Registration Date: 12/29/19 Care time: The patient presented to the Emergency Department on the above date and was hospitalized for further evaluation of their emergent condition. Critical Care patient: No - Discharge Referral Referred to [facility] No
[2020-01-06] MEDS ORDERED: cefTRIAXone SODIUM 1 GM VIAL ONE (09:08)
[2020-01-06] MEDS ORDERED: DEXTROSE 5%-WATER - 50 ML IVPB ONE (09:08)
[2020-01-06] MEDS: CEFTRIAXONE 1 GM in DEXTROSE 5%-WATER - 50 ML IVPB SCH (09:38)
[2020-01-06] MEDS: HYDROXYCHLOROQUINE SO4 200 MG TABLET (FP) PO SCH (09:38)
[2020-01-06] MEDS: ENOXAPARIN NA (PORCINE) 40 MG/0.4 ML DISP.SYRIN SQ SCH (09:38)
[2020-01-06 10:19] LABS: ANISOCYTOSIS 1+; MACROCYTOSIS 0; OVALOCYTE 2+; PLATELET ESTIMATE INCREASED; TEAR DROP CELLS 1+
[2020-01-06 13:59] VITALS: BP 104/61; PULSE 61; TEMP 99.6
[2020-01-06] MEDS ORDERED: PT OWN MED DRAWER 7, Y5N ONE (15:14)
== END 2020-01-06 18:47 | disposition home or self-care (01) | DRG 139 ==
LOC: JER 05:07 → JERBED 07:34 → J4W 12-31 02:42
PROVIDERS: ADMIT Internal Medicine; ATTEND Nurse Practitioner Acute Care
PROC: 8E0ZXY6 Isolation (ICD-10-PCS; principal; 2019-12-30)
DX: J12.89 Other viral pneumonia (principal); J96.01 Acute respiratory failure with hypoxia; B97.29 Other coronavirus as the cause of diseases classified elsewhere; J98.11 Atelectasis; R79.89 Other specified abnormal findings of blood chemistry; I45.10 Unspecified right bundle-branch block; D50.9 Iron deficiency anemia, unspecified; R74.0 Nonspecific elevation of levels of transaminase and lactic acid dehydrogenase [LDH]
CPT/HCPCS: 36415; 71045-TC-FY; 80048; 80053; 80076; 82550; 82553; 82728; 83540; 83550; 83615; 83735; 84100; 84466; 84484; 85025; 85651; 86140; 86704; 86706; 86707; 86708; 86709; 87340; 87389; 87633; 87798; 87804; 87899; 93005; 93010; 94761; 99285-25; J0131; J1756; J7030

== ENCOUNTER 2023-06-23 14:10 | Emergency (ER) | payer OTHER ==
[2023-06-23 14:24] VITALS: BP 139/74; PULSE 62; RESP 18; TEMP 98.3; BMI 31.6
[2023-06-23] MEDS ORDERED: ACETAMINOPHEN 500 MG TABLET (FP) PO ONE (14:37)
[2023-06-23] MEDS ORDERED: CYCLOBENZAPRINE HCL 10 MG TABLET (FP) PO ONE (14:37)
[2023-06-23] MEDS ORDERED: KETOROLAC TROMETHAMINE 30 MG/1 ML VIAL IM ONE (14:37)
[2023-06-23] MEDS ORDERED: LIDOCAINE 5% TOPICAL PATCH TP ONE (14:37)
[2023-06-23] MEDS ORDERED: LIDOCAINE 5% TOPICAL PATCH ONE (14:39)
[2023-06-23] MEDS ORDERED: KETOROLAC TROMETHAMINE 30 MG/1 ML VIAL ONE (14:39)
[2023-06-23] MEDS ORDERED: ACETAMINOPHEN 500 MG TABLET (FP) ONE (14:39)
[2023-06-23] MEDS ORDERED: CYCLOBENZAPRINE HCL 10 MG TABLET (FP) ONE (14:39)
[2023-06-23] MEDS ORDERED: LIDOCAINE PATCH REMOVAL MC ONE (22:00)
== END 2023-06-23 16:19 | disposition home or self-care (01) ==
LOC: JER 14:10 → JERFT 14:10
PROC: 3E0233Z Introduction of Anti-inflammatory into Muscle, Percutaneous Approach (ICD-10-PCS; principal; 2023-06-23)
DX: M54.50 Low back pain, unspecified (principal); M25.511 Pain in right shoulder; S46.911A Strain of unspecified muscle, fascia and tendon at shoulder and upper arm level, right arm, initial encounter; S39.012A Strain of muscle, fascia and tendon of lower back, initial encounter; X50.0XXA Overexertion from strenuous movement or load, initial encounter; Y99.0 Civilian activity done for income or pay
CPT/HCPCS: 72100-TC-FY; 99284-25

== ENCOUNTER 2024-07-04 09:36 | Emergency (ER) | payer OTHER ==
[2024-07-04 09:43] VITALS: BP 129/72; PULSE 60; RESP 18; TEMP 97.5; BMI 31.6
[2024-07-04] MEDS ORDERED: LIDOCAINE 4% PATCH TP ONE (11:25)
[2024-07-04] MEDS ORDERED: ACETAMINOPHEN 500 MG TABLET (FP) ONE (11:25)
[2024-07-04] MEDS ORDERED: IBUPROFEN 400 MG TABLET (FP) PO ONE ×2 (11:25→11:36)
[2024-07-04] MEDS: IBUPROFEN 400 MG TABLET (FP) PO ONE (11:33)
[2024-07-04] MEDS: LIDOCAINE 4% PATCH TP ONE (11:33)
[2024-07-04] MEDS: ACETAMINOPHEN 500 MG TABLET (FP) PO ONE (11:38)
[2024-07-04] MEDS ORDERED: LIDOCAINE PATCH REMOVAL MC SCH (22:00)
== END 2024-07-04 11:50 | disposition home or self-care (01) ==
LOC: JERFT 09:36
DX: S39.012A Strain of muscle, fascia and tendon of lower back, initial encounter (principal); X50.1XXA Overexertion from prolonged static or awkward postures, initial encounter
CPT/HCPCS: 99283-25